=== PATIENT | female | born 1970 | race Hispanic/Latino ===

== ENCOUNTER 2016-06-15 19:53 | Emergency (ER) | payer SELFPAY ==
--- NOTE | 2016-06-15 21:56 | Cat Scan Report ---
FINAL REPORT PROCEDURE: CT HEAD/BRAIN WO CON TECHNIQUE: Computerized tomography of the head was performed without contrast material. HISTORY: headache COMPARISON: No prior studies are available for comparison. FINDINGS: Skull and scalp: Normal. Paranasal sinuses: Normal. Ventricles and subarachnoid spaces: Normal. Cerebrum: No evidence of hemorrhage, acute infarction or mass . Cerebellum and brainstem: No evidence of hemorrhage, acute infarction or mass. Vasculature: Normal. Comments: None. IMPRESSION: Normal Examination
[2016-06-15 23:17] VITALS: BP 122/68
--- NOTE | 2016-06-18 19:11 | ED Elopement Review ---
ED Pt Elopement review - Call Back decision Pt Call Back Decision: Pt to F/U with PMD
== END 2016-06-16 00:41 | disposition left against medical advice (07) ==
LOC: ED 19:53
DX: R51 Headache (principal); Z53.21 Procedure and treatment not carried out due to patient leaving prior to being seen by health care provider
CPT/HCPCS: 70450

== ENCOUNTER 2017-02-22 18:46 | Emergency (ER) | payer SELFPAY ==
[2017-02-22 19:44] LABS: Hematocrit 42.4 % (30.3-42.9); Hemoglobin 14.2 gm/dl (10.1-14.3); Mean Corpuscular HGB Conc 33 % (30-34); Mean Corpuscular Hemoglobin 28 pg (28-32); Mean Corpuscular Volume 84 fl (79-97); Platelet Count 198 K/mm3 (140-440); Red Blood Count 5.03 M/mm3 (3.65-5.03)
[2017-02-22 19:55] LABS: BUN/Creatinine Ratio 28; Blood Urea Nitrogen 14 mg/dL (7-17); Calcium 9.3 mg/dL (8.4-10.2); Hemolysis Index 4
[2017-02-22 20:04] LABS: Red Cell Distribution Width 22.6 % (13.2-15.2)
[2017-02-22 20:39] LABS: Bilirubin,Urine NEG (Negative); Blood,Urine MOD (Negative); Color,Urine Yellow (Yellow); Mucus,Urine FEW /HPF; Nitrite,Urine NEG (Negative); Protein,Urine <15 mg/dL mg/dL (Negative); Urobilinogen,Urine < 2.0 mg/dL (<2.0)
[2017-02-23] MEDS ORDERED: MORPHINE IV ONE (07:23)
[2017-02-23] MEDS ORDERED: ZOFRAN IV ONE (07:23)
--- NOTE | 2017-02-23 07:26 | Emergency Department Report ---
ED General Adult HPI - General Chief complaint: Urogenital-Female Stated complaint: BLOOD IN URINE Time Seen by Provider: 02/23/17 06:52 Source: patient Mode of arrival: Ambulatory Limitations: No Limitations - History of Present Illness Initial comments: Patient is a 46-year-old female who is presenting with right flank pain. Patient states that the pain has been for 2 days Radiation: non-radiation Severity scale (0 -10): 7 Quality: aching Consistency: constant Improves with: none Worsens with: none Associated Symptoms: nausea/vomiting, other (patient also has noted some hematuria). denies: confusion, chest pain, cough, fever/chills, headaches, shortness of breath, syncope Treatments Prior to Arrival: none - Related Data Home Medications Medication Instructions Recorded Confirmed Last Taken Carvedilol [Coreg] 3.125 mg PO DAILY 04/26/16 06/15/16 06/15/16 Clopidogrel Bisulfate [Plavix] 75 mg PO DAILY 04/26/16 06/15/16 06/15/16 FLUoxetine HCL [PROzac] 40 mg PO QDAY 04/26/16 06/15/16 06/15/16 Zolpidem [Ambien] 5 mg PO QHS PRN 04/26/16 06/15/16 1 Day Ago ~06/14/16 Previous Rx's Medication Instructions Recorded Last Taken Type Aspirin [Aspirin BABY CHEW TAB] 81 mg PO QDAY #30 tab.chew 09/24/15 06/15/16 Rx AtorvaSTATin [Lipitor] 80 mg PO QHS #30 tablet 09/24/15 1 Day Ago Rx ~06/14/16 Nitroglycerin [Nitrostat] 0.4 mg SL .Q5MIN PRN #100 tablet 09/24/15 1 Day Ago Rx ~04/25/16 Pantoprazole [Protonix TAB] 40 mg PO QDAY #30 tablet 02/04/16 06/15/16 Rx Antacid [Alum-Mag Hydrox-Simeth 15 ml PO Q4H PRN #30 oral.liqd 04/27/16 Unknown Rx [id number]/5Ml] Famotidine [Pepcid] 40 mg PO QHS #30 tablet 04/27/16 06/15/16 Rx Azithromycin [Zithromax Z-CELI] 1 dose PO DAILY 5 Days tab 12/22/16 Unknown Rx HYDROcodone/APAP 7.5-325 [[place] 1 each PO Q6HR PRN #20 tablet 12/22/16 Unknown Rx 7.5/325] Ibuprofen [Motrin] 600 mg PO Q8H PRN #30 tablet 12/22/16 Unknown Rx Ciprofloxacin HCl [Cipro] 500 mg PO BID 7 Days tablet 02/23/17 Unknown Rx HYDROcodone/APAP 5-325 [[place] 1 each PO Q6HR PRN #12 tablet 02/23/17 Unknown Rx 5/325] Ondansetron [Zofran Odt] 4 mg PO Q12HR #10 tab.rapdis 02/23/17 Unknown Rx Allergies Allergy/AdvReac Type Severity Reaction Status Date / Time No Known Allergies Allergy Unverified 09/21/15 09:51 ED Review of Systems ROS: Stated complaint: BLOOD IN URINE Other details as noted in HPI Comment: All other systems reviewed and negative ED Past Medical Hx - Past Medical History Hx Hypertension: No Hx Heart Attack/AMI: Yes Hx Congestive Heart Failure: No Hx Diabetes: No Hx Asthma: No Hx COPD: No Hx HIV: No Additional medical history: [place] with stent placement 08/2015. Esophageal stricture - Surgical History Hx Cholecystectomy: Yes Additional Surgical History: hysterectomy - Social History Smoking Status: Current Every Day Smoker Substance Use Type: None - Medications Home Medications: Home Medications Medication Instructions Recorded Confirmed Last Taken Type Aspirin [Aspirin BABY CHEW TAB] 81 mg PO QDAY #30 tab.chew 09/24/15 06/15/16 Rx AtorvaSTATin [Lipitor] 80 mg PO QHS #30 tablet 09/24/15 06/15/16 1 Day Ago Rx ~06/14/16 Nitroglycerin [Nitrostat] 0.4 mg SL .Q5MIN PRN #100 tablet 09/24/15 06/15/16 1 Day Ago Rx ~04/25/16 Pantoprazole [Protonix TAB] 40 mg PO QDAY #30 tablet 02/04/16 06/15/16 06/15/16 Rx Carvedilol [Coreg] 3.125 mg PO DAILY 04/26/16 06/15/16 06/15/16 History Clopidogrel Bisulfate [Plavix] 75 mg PO DAILY 04/26/16 06/15/16 06/15/16 History FLUoxetine HCL [PROzac] 40 mg PO QDAY 04/26/16 06/15/16 06/15/16 History Zolpidem [Ambien] 5 mg PO QHS PRN 04/26/16 06/15/16 1 Day Ago History ~06/14/16 Antacid [Alum-Mag Hydrox-Simeth 15 ml PO Q4H PRN #30 oral.liqd 04/27/16 Unknown Rx [id number]/5Ml] Famotidine [Pepcid] 40 mg PO QHS #30 tablet 04/27/16 06/15/16 06/15/16 Rx Azithromycin [Zithromax Z-CELI] 1 dose PO DAILY 5 Days tab 12/22/16 Unknown Rx HYDROcodone/APAP 7.5-325 [[place] 1 each PO Q6HR PRN #20 tablet 12/22/16 Unknown Rx 7.5/325] Ibuprofen [Motrin] 600 mg PO Q8H PRN #30 tablet 12/22/16 Unknown Rx Ciprofloxacin HCl [Cipro] 500 mg PO BID 7 Days tablet 02/23/17 Unknown Rx HYDROcodone/APAP 5-325 [[place] 1 each PO Q6HR PRN #12 tablet 02/23/17 Unknown Rx 5/325] Ondansetron [Zofran Odt] 4 mg PO Q12HR #10 tab.rapdis 02/23/17 Unknown Rx ED Physical Exam - General Limitations: No Limitations General appearance: alert, in no apparent distress - Head Head exam: Present: atraumatic, normocephalic - Eye Eye exam: Present: normal appearance - ENT ENT exam: Present: mucous membranes moist - Neck Neck exam: Present: normal inspection - Respiratory Respiratory exam: Present: normal lung sounds bilaterally. Absent: respiratory distress - Cardiovascular Cardiovascular Exam: Present: regular rate, normal rhythm. Absent: systolic murmur, diastolic murmur, rubs, gallop - GI/Abdominal GI/Abdominal exam: Present: soft, tenderness (right flank and right CVA), normal bowel sounds. Absent: distended, guarding, rebound - Extremities Exam Extremities exam: Present: normal inspection - Back Exam Back exam: Present: normal inspection - Neurological Exam Neurological exam: Present: alert, oriented X3 - Psychiatric Psychiatric exam: Present: normal affect, normal mood - Skin Skin exam: Present: warm, dry, intact, normal color. Absent: rash ED Course Vital Signs 02/22/17 02/23/17 02/23/17 19:05 05:58 06:00 Temperature 97.9 F Pulse Rate 83 Respiratory 18 Rate Blood Pressure 139/96 124/56 119/57 O2 Sat by Pulse 97 96 Oximetry 02/23/17 02/23/17 02/23/17 06:12 06:15 06:30 Temperature Pulse Rate Respiratory 18 Rate Blood Pressure 119/57 122/64 O2 Sat by Pulse 97 95 92 Oximetry 02/23/17 02/23/17 06:45 07:00 Temperature Pulse Rate Respiratory Rate Blood Pressure 127/69 O2 Sat by Pulse 94 96 Oximetry ED Medical Decision Making - Lab Data Result diagrams: 02/22/17 19:18 02/22/17 19:18 Critical care attestation.: If time is entered above; I have spent that time in minutes in the direct care of this critically ill patient, excluding procedure time. ED Disposition Clinical Impression: Hematuria Disposition: DC-01 TO HOME OR SELFCARE Is pt being admited?: No Does the pt Need Aspirin: No Condition: Good Instructions: Acute Hematuria (ED), Kidney Stones (ED) Prescriptions: Ciprofloxacin HCl [Cipro] 500 mg PO BID 7 Days tablet HYDROcodone/APAP 5-325 [[place] 5/325] 1 each PO Q6HR PRN #12 tablet PRN Reason: Pain Ondansetron [Zofran Odt] 4 mg PO Q12HR #10 tab.rapdis Referrals: SONU SANON MD [Staff Physician] - 3-5 Days
--- NOTE | 2017-02-23 07:51 | Cat Scan Report ---
CT ABDOMEN PELVIS WITHOUT CONTRAST: HISTORY: Right flank pain. COMPARISON: none. TECHNIQUE: Helical CT in 1.25mm intervals without IV contrast. Sagittal and coronal reconstructions. FINDINGS: Lung bases: Normal. Liver: Normal. Biliary system: Cholecystectomy. No evidence for biliary dilatation. Pancreas: Normal. Spleen: Normal. Kidneys/ureters/bladder: Within normal limits. No evidence for cystic disease, mass, nephrolithiasis or hydronephrosis. The ureters are normal course and caliber. The bladder is within normal limits. Adrenal glands: Normal. Aorta: Normal. Intestines: A few sigmoid diverticula are identified. No evidence for focal inflammation or obstruction. Appendix: Normal. Pelvic viscera: Hysterectomy changes. The ovaries are unremarkable. Ascites: None. Adenopathy: None. Musculoskeletal: Mild thoracolumbar spondylosis. IMPRESSION: Unremarkable CT scan of the abdomen and pelvis without contrast. Surgical changes as described.
[2017-02-23 11:26] VITALS: BP 102/59
== END 2017-02-23 11:30 | disposition home or self-care (01) ==
LOC: ED 18:46
DX: R31.9 Hematuria, unspecified (principal); F17.200 Nicotine dependence, unspecified, uncomplicated; I25.2 Old myocardial infarction; Z90.710 Acquired absence of both cervix and uterus; Z79.01 Long term (current) use of anticoagulants; Z79.899 Other long term (current) drug therapy; Z79.82 Long term (current) use of aspirin
CPT/HCPCS: 36415; 74176; 80048; 81001; 85027; 96374; 96375; 99284; J2270; J2405

== ENCOUNTER 2017-05-28 11:14 | Emergency (ER) | payer SELFPAY ==
[2017-05-28] MEDS ORDERED: ASPIRIN PO ONE (11:33)
[2017-05-28 12:00] LABS: Basophils # (Auto) 0.1 K/mm3 (0.0-0.1); Basophils % (Auto) 0.6 % (0.0-1.8); Eosinophils # (Auto) 0.8 K/mm3 (0.0-0.4); Eosinophils % (Auto) 7.6 % (0.0-4.3); Hematocrit 42.9 % (30.3-42.9); Lymphocytes % (Auto) 20.1 % (13.4-35.0); Mean Corpuscular HGB Conc 35 % (30-34); Mean Corpuscular Hemoglobin 32 pg (28-32); Mean Corpuscular Volume 91 fl (79-97); Monocytes # (Auto) 0.7 K/mm3 (0.0-0.8); Monocytes % (Auto) 6.8 % (0.0-7.3); Platelet Count 198 K/mm3 (140-440); Red Blood Count 4.72 M/mm3 (3.65-5.03); Red Cell Distribution Width 13.1 % (13.2-15.2)
[2017-05-28 12:20] LABS: BUN/Creatinine Ratio 24; Blood Urea Nitrogen 12 mg/dL (7-17); Calcium 9.4 mg/dL (8.4-10.2); Hemolysis Index 12
[2017-05-28] MEDS ORDERED: ZOFRAN IV ONE (21:31)
[2017-05-28] MEDS ORDERED: MORPHINE IV ONE (21:31)
--- NOTE | 2017-05-28 21:52 | Emergency Department Report ---
HPI - General Chief Complaint: Chest Pain Time Seen by Provider: 05/28/17 21:25 - HPI HPI: 47-year-old white female presents to ED with chest pain, quite a past 3 days worse today. Patient describes her pain at 4 out of 10, without radiation, sharp, without shortness of breath. Patient states she has a history of blood pressure, history of CAD status post stent placement 2 years ago. Patient is accompanied by will help with the history. Patient lays in bed does not appear to be in distress. She denies any exacerbating factors, she denies any alleviating factors. She's had a history of chest pain especially with her history of esophageal spasm. ED Past Medical Hx - Past Medical History Hx Hypertension: No Hx Heart Attack/AMI: Yes Hx Congestive Heart Failure: No Hx Diabetes: No Hx Asthma: No Hx COPD: No Hx HIV: No Additional medical history: [place] with stent placement 08/2015. Esophageal stricture - Surgical History Hx Cholecystectomy: Yes Additional Surgical History: hyste[place] with stent 2015 - Social History Smoking Status: Current Every Day Smoker Substance Use Type: None - Medications Home Medications: Home Medications Medication Instructions Recorded Confirmed Last Taken Type Aspirin [Aspirin BABY CHEW TAB] 81 mg PO QDAY #30 tab.chew 09/24/15 05/28/17 Rx AtorvaSTATin [Lipitor] 80 mg PO QHS #30 tablet 09/24/15 05/28/17 1 Day Ago Rx ~06/14/16 Nitroglycerin [Nitrostat] 0.4 mg SL .Q5MIN PRN #100 tablet 09/24/15 05/28/17 1 Day Ago Rx ~04/25/16 Pantoprazole [Protonix TAB] 40 mg PO QDAY #30 tablet 02/04/16 05/28/17 06/15/16 Rx Clopidogrel Bisulfate [Plavix] 75 mg PO DAILY 04/26/16 05/28/17 06/15/16 History Zolpidem [Ambien] 5 mg PO QHS PRN 04/26/16 05/28/17 1 Day Ago History ~06/14/16 Ibuprofen [Motrin] 600 mg PO Q8H PRN #30 tablet 12/22/16 05/28/17 Unknown Rx Hydrochlorothiazide [HCTZ] 25 mg PO QDAY 05/28/17 05/28/17 Unknown History Metoprolol 50 mg PO BID 05/28/17 05/28/17 Unknown History Potassium Chloride [K-Dur] 20 meq PO QDAY 05/28/17 05/28/17 Unknown History ED Review of Systems ROS: Stated complaint: CHEST PAIN Other details as noted in HPI Comment: All other systems reviewed and negative Respiratory: denies: see HPI, cough Cardiovascular: chest pain. denies: syncope, paroxysmal nocturnal dyspnea Physical Exam - Physical Exam Vital Signs: Vital Signs 05/28/17 11:26 Temperature 98.5 F Pulse Rate 71 Respiratory 20 Rate Blood Pressure 117/67 O2 Sat by Pulse 97 Oximetry Physical Exam: - Physical Exam Physical Exam: - General Limitations: No Limitations General appearance: alert, in no apparent distress. - Head Head exam: Present: atraumatic, normocephalic - Eye Eye exam: Present: normal appearance - ENT ENT exam: Present: mucous membranes moist - Neck Neck exam: Present: normal inspection - Respiratory Respiratory exam: Present: normal lung sounds bilaterally. Absent: respiratory distress - Cardiovascular Cardiovascular Exam: Present: normal rhythm, normal rate absent: systolic murmur , diastolic murmur, rubs, gallop - GI/Abdominal GI/Abdominal exam: Present: soft, normal bowel sounds - Extremities Exam Extremities exam: Present: normal inspection - Back Exam Back exam: Present: normal inspection - Neurological Exam Neurological exam: Present: alert, oriented X3 - Psychiatric Psychiatric exam: normal affect and mood - Skin Skin exam: Present: warm, dry, intact, normal color. Absent: rash ED Course Vital Signs 05/28/17 11:26 Temperature 98.5 F Pulse Rate 71 Respiratory 20 Rate Blood Pressure 117/67 O2 Sat by Pulse 97 Oximetry ED Medical Decision Making - Lab Data Result diagrams: 05/28/17 11:47 05/28/17 11:47 Critical care attestation.: If time is entered above; I have spent that time in minutes in the direct care of this critically ill patient, excluding procedure time. ED Disposition Clinical Impression: Chest pain Qualifiers: Chest pain type: other chest pain Qualified Code(s): R07.89 - Other chest pain ; R07.8 - Other chest pain Condition: Stable Instructions: Chest Pain (ED) Referrals: PRIMARY CARE, [Primary Care Provider] - 3-5 Days
[2017-05-28] MEDS ORDERED: NORCO 10/325 PO ONE (21:58)
[2017-05-28 23:07] VITALS: BP 147/95
== END 2017-05-28 23:06 | disposition home or self-care (01) ==
LOC: ED 11:14
DX: R07.89 Other chest pain (principal); F17.200 Nicotine dependence, unspecified, uncomplicated; I25.2 Old myocardial infarction; I25.10 Atherosclerotic heart disease of native coronary artery without angina pectoris; Z90.710 Acquired absence of both cervix and uterus; Z90.49 Acquired absence of other specified parts of digestive tract; Z95.818 Presence of other cardiac implants and grafts
CPT/HCPCS: 36415; 80048; 84484; 85025; 93005; 93010; 99284

== ENCOUNTER 2017-08-29 14:25 | Emergency (ER) | payer SELFPAY ==
[2017-08-29 14:38] VITALS: BP 125/78
[2017-08-29 15:58] LABS: Bacteria,Urine 1+ /HPF (Negative); Bilirubin,Urine NEG (Negative); Blood,Urine NEG (Negative); Color,Urine Amber (Yellow); Protein,Urine <15 mg/dL mg/dL (Negative); WBC,Urine < 1.0 /HPF (0.0-6.0)
[2017-08-29] MEDS ORDERED: NACL 0.9% 1000 ML 1,000 ML IV ONE (16:47)
[2017-08-29] MEDS ORDERED: DILAUDID IV ONE (16:47)
--- NOTE | 2017-08-29 16:47 | Emergency Department Report ---
ED Abdominal Pain HPI - General Chief Complaint: Abdominal Pain Stated Complaint: KINDNEY PAIN Time Seen by Provider: 08/29/17 16:31 Source: patient Mode of arrival: Ambulatory Limitations: No Limitations - History of Present Illness Initial Comments: History of hysterectomy, n no vaginal bleeding no vaginal discharge. With left flank pain no dysuria MD Complaint: abdominal pain, flank pain -: Gradual, hour(s) Location: L flank Severity: mild, moderate Consistency: intermittent Associated Symptoms: denies other symptoms, dysuria. denies: nausea, vomiting, diarrhea, fever, chills, constipation, hematemesis, hematochezia, melena, hematuria, anorexia, syncope - Related Data Home Medications Medication Instructions Recorded Confirmed Last Taken Clopidogrel Bisulfate [Plavix] 75 mg PO DAILY 04/26/16 05/28/17 06/15/16 Zolpidem [Ambien] 5 mg PO QHS PRN 04/26/16 05/28/17 1 Day Ago ~06/14/16 Hydrochlorothiazide [HCTZ] 25 mg PO QDAY 05/28/17 05/28/17 Unknown Metoprolol 50 mg PO BID 05/28/17 05/28/17 Unknown Potassium Chloride [K-Dur] 20 meq PO QDAY 05/28/17 05/28/17 Unknown Previous Rx's Medication Instructions Recorded Last Taken Type Aspirin [Aspirin BABY CHEW TAB] 81 mg PO QDAY #30 tab.chew 09/24/15 06/15/16 Rx AtorvaSTATin [Lipitor] 80 mg PO QHS #30 tablet 09/24/15 1 Day Ago Rx ~06/14/16 Nitroglycerin [Nitrostat] 0.4 mg SL .Q5MIN PRN #100 tablet 09/24/15 1 Day Ago Rx ~04/25/16 Pantoprazole [Protonix TAB] 40 mg PO QDAY #30 tablet 02/04/16 06/15/16 Rx Ibuprofen [Motrin] 600 mg PO Q8H PRN #30 tablet 12/22/16 Unknown Rx Acetaminophen/Codeine [Tylenol 1 tab PO Q6H PRN #10 tab 08/29/17 Unknown Rx /Codeine # 3 tab] Ciprofloxacin HCl [Cipro] 500 mg PO BID #14 tablet 08/29/17 Unknown Rx Phenazopyridine [Pyridium] 200 mg PO TID PRN #10 tab 08/29/17 Unknown Rx Allergies Allergy/AdvReac Type Severity Reaction Status Date / Time No Known Allergies Allergy Verified 08/29/17 14:35 ED Review of Systems ROS: Stated complaint: KINDNEY PAIN Other details as noted in HPI Comment: All other systems reviewed and negative Constitutional: denies: diaphoresis, fever, malaise Eyes: denies: eye discharge, vision change ENT: denies: dental pain, hearing loss, epistaxis Respiratory: denies: shortness of breath, SOB with exertion, SOB at rest, stridor Cardiovascular: denies: chest pain, palpitations Gastrointestinal: abdominal pain. denies: nausea, vomiting, diarrhea, constipation, hematemesis, melena Genitourinary: dysuria Musculoskeletal: back pain, other (denies injury to the back denies mechanical symptoms). denies: joint swelling, arthralgia, myalgia Neurological: denies: headache, weakness, numbness, paresthesias, confusion, abnormal gait, vertigo ED Past Medical Hx - Past Medical History Hx Hypertension: No Hx Heart Attack/AMI: Yes (stent) Hx Congestive Heart Failure: No Hx Diabetes: No Hx Asthma: No Hx COPD: No Hx HIV: No Additional medical history: [place] with stent placement 08/2015. Esophageal stricture - Surgical History Hx Cholecystectomy: Yes Additional Surgical History: hysterectomy - Social History Smoking Status: Current Every Day Smoker Substance Use Type: None - Medications Home Medications: Home Medications Medication Instructions Recorded Confirmed Last Taken Type Aspirin [Aspirin BABY CHEW TAB] 81 mg PO QDAY #30 tab.chew 09/24/15 05/28/17 Rx AtorvaSTATin [Lipitor] 80 mg PO QHS #30 tablet 09/24/15 05/28/17 1 Day Ago Rx ~06/14/16 Nitroglycerin [Nitrostat] 0.4 mg SL .Q5MIN PRN #100 tablet 09/24/15 05/28/17 1 Day Ago Rx ~04/25/16 Pantoprazole [Protonix TAB] 40 mg PO QDAY #30 tablet 02/04/16 05/28/17 06/15/16 Rx Clopidogrel Bisulfate [Plavix] 75 mg PO DAILY 04/26/16 05/28/17 06/15/16 History Zolpidem [Ambien] 5 mg PO QHS PRN 04/26/16 05/28/17 1 Day Ago History ~06/14/16 Ibuprofen [Motrin] 600 mg PO Q8H PRN #30 tablet 12/22/16 05/28/17 Unknown Rx Hydrochlorothiazide [HCTZ] 25 mg PO QDAY 05/28/17 05/28/17 Unknown History Metoprolol 50 mg PO BID 05/28/17 05/28/17 Unknown History Potassium Chloride [K-Dur] 20 meq PO QDAY 05/28/17 05/28/17 Unknown History Acetaminophen/Codeine [Tylenol 1 tab PO Q6H PRN #10 tab 08/29/17 Unknown Rx /Codeine # 3 tab] Ciprofloxacin HCl [Cipro] 500 mg PO BID #14 tablet 08/29/17 Unknown Rx Phenazopyridine [Pyridium] 200 mg PO TID PRN #10 tab 08/29/17 Unknown Rx ED Physical Exam - General Limitations: No Limitations General appearance: alert - Head Head exam: Present: atraumatic, normocephalic - Eye Eye exam: Present: PERRL, EOMI - ENT ENT exam: Present: normal exam, normal orophraynx - Neck Neck exam: Present: normal inspection. Absent: tenderness, meningismus - Respiratory Respiratory exam: Present: normal lung sounds bilaterally. Absent: respiratory distress, wheezes, rales, rhonchi, stridor, prolonged expiratory - Cardiovascular Cardiovascular Exam: Present: regular rate, normal rhythm - GI/Abdominal GI/Abdominal exam: Present: soft. Absent: distended, tenderness, guarding, rebound, rigid, mass, pulsatile mass - Extremities Exam Extremities exam: Present: normal inspection, normal capillary refill - Back Exam Back exam: Present: CVA tenderness (L). Absent: paraspinal tenderness, vertebral tenderness - Neurological Exam Neurological exam: Present: alert, oriented X3, CN II-XII intact. Absent: motor sensory deficit ED Course Vital Signs 08/29/17 14:36 Temperature 98.1 F Pulse Rate 76 Respiratory 16 Rate Blood Pressure 125/78 O2 Sat by Pulse 98 Oximetry ED Medical Decision Making - Lab Data Result diagrams: 08/29/17 17:01 08/29/17 17:01 - Radiology Data Radiology results: report reviewed - Medical Decision Making CT shows normal appendix process in the abdomen and pelvis, urinalysis does look like possible UTI and symptoms are likely consistent with pyelonephritis, she will be given antibiotics and pain control, she has no acute abdomen at this time is tolerated by mouth prior signs are stable are made of the laboratory studies are unremarkable she is stable for outpatient follow-up she does have elevated white count and this would also be consistent with urinary infection patient did consent a Toradol shot Critical care attestation.: If time is entered above; I have spent that time in minutes in the direct care of this critically ill patient, excluding procedure time. ED Disposition Clinical Impression: UTI (urinary tract infection), Back pain Disposition: TO HOME OR SELFCARE Is pt being admited?: No Condition: Stable Instructions: Abdominal Pain (ED), Urinary Tract Infection in Women (ED) Additional Instructions: Take the medicines as directed see the doctor listed return immediately if new or alarming symptoms Prescriptions: Acetaminophen/Codeine [Tylenol /Codeine # 3 tab] 1 tab PO Q6H PRN #10 tab PRN Reason: Pain, Moderate (4-6) Ciprofloxacin HCl [Cipro] 500 mg PO BID #14 tablet Phenazopyridine [Pyridium] 200 mg PO TID PRN #10 tab PRN Reason: Pain, Moderate (4-6) Referrals: PRIMARY CARE, [Primary Care Provider] - 3-5 Days Time of Disposition: 18:15
[2017-08-29] MEDS ORDERED: ZOFRAN IV ONE (16:48)
[2017-08-29 17:19] LABS: Basophils # (Auto) 0.1 K/mm3 (0.0-0.1); Basophils % (Auto) 0.7 % (0.0-1.8); Eosinophils # (Auto) 0.5 K/mm3 (0.0-0.4); Eosinophils % (Auto) 4.4 % (0.0-4.3); Hematocrit 45.1 % (30.3-42.9); Hemoglobin 15.6 gm/dl (10.1-14.3); Lymphocytes % (Auto) 16.2 % (13.4-35.0); Mean Corpuscular HGB Conc 35 % (30-34); Mean Corpuscular Hemoglobin 32 pg (28-32); Mean Corpuscular Volume 93 fl (79-97); Monocytes # (Auto) 0.6 K/mm3 (0.0-0.8); Platelet Count 202 K/mm3 (140-440); Red Blood Count 4.87 M/mm3 (3.65-5.03); Red Cell Distribution Width 12.9 % (13.2-15.2)
[2017-08-29 17:29] LABS: Alanine Aminotransferase 45 units/L (7-56); Albumin 4.6 g/dL (3.9-5); BUN/Creatinine Ratio 24; Blood Urea Nitrogen 12 mg/dL (7-17); Calcium 9.8 mg/dL (8.4-10.2); Hemolysis Index 23
--- NOTE | 2017-08-29 17:53 | Cat Scan Report ---
FINAL REPORT PROCEDURE: CT ABDOMEN PELVIS WO CON TECHNIQUE: Computerized axial tomography of the abdomen and pelvis was performed without intravenous contrast. This study is performed without intravascular contrast material and its sensitivity for abdominal and pelvic pathology, including neoplasms, inflammation, abscess, free fluid, thrombosis, arterial dissection and infarction, is reduced compared with a contrast enhanced study. HISTORY: flank pain COMPARISON: No prior studies are available for comparison. FINDINGS: Visualized lower thorax: No significant abnormality. Liver: Liver is prominent, measuring 22 centimeters craniocaudal. Spleen: Normal size and attenuation. Gallbladder and biliary system: There has been cholecystectomy. Pancreas: Normal. Adrenals: Normal. Kidneys: Normal. GI tract: The appendix is visualized and does not appear inflamed. Scattered colonic diverticula are present. No bowel obstruction or inflammation. Lymph nodes and mesentery: Normal. Vasculature: Normal. Bladder: Normal. Reproductive organs: Uterus is not identified. 17 millimeter left ovarian cyst. Peritoneum: No free fluid. Musculoskeletal structures: There are facet arthritic changes of the lower lumbar spine. Other: None. IMPRESSION: No acute abnormality is identified.
[2017-08-29] MEDS ORDERED: TORADOL IV ONE (18:00)
== END 2017-08-29 18:33 | disposition home or self-care (01) ==
LOC: ED 14:25
DX: N39.0 Urinary tract infection, site not specified (principal); M54.9 Dorsalgia, unspecified; I25.2 Old myocardial infarction; F17.200 Nicotine dependence, unspecified, uncomplicated; Z90.49 Acquired absence of other specified parts of digestive tract; Z90.710 Acquired absence of both cervix and uterus
CPT/HCPCS: 36415; 74176; 80053; 81001; 85025; 87086; 96374; 96375; 99284; J1170; J1885; J2405; J7030

== ENCOUNTER 2017-11-29 08:35 | Emergency (ER) | payer SELFPAY ==
[2017-11-29 08:43] VITALS: BP 140/77
[2017-11-29] MEDS ORDERED: ASPIRIN PO ONE (08:44)
== END 2017-11-29 11:55 | disposition left against medical advice (07) ==
LOC: ED 08:35
DX: R07.89 Other chest pain (principal); Z53.21 Procedure and treatment not carried out due to patient leaving prior to being seen by health care provider
CPT/HCPCS: 93005; 93010

== ENCOUNTER 2018-04-29 15:12 | Emergency (ER) | payer OTHER ==
[2018-04-29 15:41] VITALS: BP 128/66
[2018-04-29] MEDS ORDERED: ASPIRIN PO ONE (16:04)
--- NOTE | 2018-04-29 16:06 | Emergency Department Report ---
Chief Complaint: Chest Pain Stated Complaint: DIFFICULTY BREATHING Time Seen by Provider: 04/29/18 16:00 - HPI History of Present Illness: This is a 48 y.o. female that presents with chest/rib pain that increased this morning. Patient states she is recovering from a cold and can't get rid of the cough. Current smoker quarter pack per day. She reports pain is under breast. She also complains of SOB. - ROS Review of Systems: Substernal chest pain and SOB. - Exam Vital Signs: Vital Signs 04/29/18 15:40 Temperature 98.2 F Pulse Rate 88 Respiratory 16 Rate Blood Pressure 128/66 [Right] O2 Sat by Pulse 96 Oximetry MSE screening note: Focused history and physical exam performed. Due to findings the following was ordered: labs Fast track for further evaluation. ED Disposition for MSE Condition: Stable
[2018-04-29 16:51] LABS: Basophils # (Auto) 0.1 K/mm3 (0.0-0.1); Basophils % (Auto) 0.9 % (0.0-1.8); Eosinophils # (Auto) 0.7 K/mm3 (0.0-0.4); Eosinophils % (Auto) 6.3 % (0.0-4.3); Hematocrit 44.9 % (30.3-42.9); Hemoglobin 15.6 gm/dl (10.1-14.3); Lymphocytes # (Auto) 2.7 K/mm3 (1.2-5.4); Lymphocytes % (Auto) 23.1 % (13.4-35.0); Mean Corpuscular HGB Conc 35 % (30-34); Mean Corpuscular Volume 93 fl (79-97); Monocytes # (Auto) 0.6 K/mm3 (0.0-0.8); Monocytes % (Auto) 4.8 % (0.0-7.3); Platelet Count 220 K/mm3 (140-440); Red Blood Count 4.83 M/mm3 (3.65-5.03); Red Cell Distribution Width 12.9 % (13.2-15.2)
[2018-04-29 17:17] LABS: BUN/Creatinine Ratio 18; Blood Urea Nitrogen 9 mg/dL (7-17); Calcium 9.5 mg/dL (8.4-10.2); Hemolysis Index 8
[2018-04-29] MEDS ORDERED: TYLENOL/CODEINE PO STA (17:45)
[2018-04-29] MEDS ORDERED: PROVENTIL IH ONE (17:45)
[2018-04-29] MEDS ORDERED: DELTASONE PO STA (17:45)
--- NOTE | 2018-04-29 18:11 | Emergency Department Report ---
ED General Adult HPI - General Chief complaint: Chest Pain Stated complaint: DIFFICULTY BREATHING Time Seen by Provider: 04/29/18 16:00 Source: patient Mode of arrival: Ambulatory Limitations: No Limitations - History of Present Illness Initial comments: 48-year-old obese female. She is much department complaining of a three-day history of cough, congestion and wheezing associated with family being sick and she is now given to The cold. She is has been trying to elude for the last 2 weeks. She reports no fever, chills, sweats, chest palpitations, nausea, vomiting, but has been experiencing some wheezing, yellow mucous production and irritation to her throat. States she had a coughing spell this morning and she felt a pop to the right side of her rib and chest. Since that time as having aching, dull, chest pain, worse with deep breath and palpation. No hemoptysis, no hematemesis, hematochezia Radiation: non-radiation Severity scale (0 -10): 8 Improves with: none Worsens with: none Associated Symptoms: denies: chest pain, cough, loss of appetite, malaise, nausea/vomiting, shortness of breath, syncope, weakness Treatments Prior to Arrival: none - Related Data Home Medications Medication Instructions Recorded Confirmed Last Taken Clopidogrel Bisulfate [Plavix] 75 mg PO DAILY 04/26/16 05/28/17 06/15/16 Zolpidem [Ambien] 5 mg PO QHS PRN 04/26/16 05/28/17 1 Day Ago ~06/14/16 Metoprolol 50 mg PO BID 05/28/17 05/28/17 Unknown Potassium Chloride [K-Dur] 20 meq PO QDAY 05/28/17 05/28/17 Unknown hydroCHLOROthiazide [HCTZ] 25 mg PO QDAY 05/28/17 05/28/17 Unknown Previous Rx's Medication Instructions Recorded Last Taken Type Aspirin [Aspirin BABY CHEW TAB] 81 mg PO QDAY #30 tab.chew 09/24/15 06/15/16 Rx AtorvaSTATin [Lipitor] 80 mg PO QHS #30 tablet 09/24/15 1 Day Ago Rx ~06/14/16 Nitroglycerin [Nitrostat] 0.4 mg SL .Q5MIN PRN #100 tablet 09/24/15 1 Day Ago Rx ~04/25/16 Pantoprazole [Protonix TAB] 40 mg PO QDAY #30 tablet 02/04/16 06/15/16 Rx Ibuprofen [Motrin] 600 mg PO Q8H PRN #30 tablet 12/22/16 Unknown Rx Acetaminophen/Codeine [Tylenol 1 tab PO Q6H PRN #10 tab 08/29/17 Unknown Rx /Codeine # 3 tab] Ciprofloxacin HCl [Cipro] 500 mg PO BID #14 tablet 08/29/17 Unknown Rx Phenazopyridine [Pyridium] 200 mg PO TID PRN #10 tab 08/29/17 Unknown Rx Acetaminophen/Codeine [Tylenol 1 tab PO Q6H PRN #20 tab 01/30/18 Unknown Rx /Codeine # 3 tab] Clobetasol Propionate/Emoll 60 gm TP DAILY 21 Days #1 cream..g. 01/30/18 Unknown Rx [Clobetasol Emollient 0.05% Crm] hydrOXYzine HCL [Atarax] 25 mg PO Q6HR PRN #28 tablet 01/30/18 Unknown Rx methylPREDNISolone [Medrol] 4 mg PO QAM 6 Days #1 tab.ds.pk 01/30/18 Unknown Rx ALBUTEROL Inhaler (OR & NICU) 2 puff IH QID PRN #1 inhalation 04/29/18 Unknown Rx [ProAir HFA Inhaler] Amoxicillin 500 mg PO QID #40 capsule 04/29/18 Unknown Rx guaiFENesin/CODEINE [Robitussin AC] 5 ml PO Q6H PRN #120 ml 04/29/18 Unknown Rx predniSONE [Deltasone] 20 mg PO QDAY #5 tab 04/29/18 Unknown Rx Allergies Allergy/AdvReac Type Severity Reaction Status Date / Time No Known Allergies Allergy Verified 11/29/17 15:01 ED Review of Systems ROS: Stated complaint: DIFFICULTY BREATHING Other details as noted in HPI Constitutional: denies: chills, fever Eyes: denies: eye pain, eye discharge, vision change ENT: denies: ear pain, throat pain Respiratory: cough. denies: shortness of breath, wheezing Cardiovascular: chest pain. denies: palpitations Endocrine: no symptoms reported Gastrointestinal: denies: abdominal pain, nausea, diarrhea Genitourinary: denies: urgency, dysuria, discharge Musculoskeletal: denies: back pain, joint swelling, arthralgia Skin: denies: rash, lesions Neurological: denies: headache, weakness, paresthesias Psychiatric: denies: anxiety, depression Hematological/Lymphatic: denies: easy bleeding, easy bruising ED Past Medical Hx - Past Medical History Hx Hypertension: No Hx Heart Attack/AMI: Yes (stent) Hx Congestive Heart Failure: No Hx Diabetes: No Hx Seizures: Yes Hx Asthma: No Hx COPD: No Hx HIV: No Additional medical history: GA with stent placement 08/2015. Esophageal stricture - Surgical History Hx Cholecystectomy: Yes Additional Surgical History: hysterectomy - Social History Smoking Status: Current Every Day Smoker Substance Use Type: None - Medications Home Medications: Home Medications Medication Instructions Recorded Confirmed Last Taken Type Aspirin [Aspirin BABY CHEW TAB] 81 mg PO QDAY #30 tab.chew 09/24/15 05/28/17 06/15/16 Rx AtorvaSTATin [Lipitor] 80 mg PO QHS #30 tablet 09/24/15 05/28/17 1 Day Ago Rx ~06/14/16 Nitroglycerin [Nitrostat] 0.4 mg SL .Q5MIN PRN #100 tablet 09/24/15 05/28/17 1 Day Ago Rx ~04/25/16 Pantoprazole [Protonix TAB] 40 mg PO QDAY #30 tablet 02/04/16 05/28/17 06/15/16 Rx Clopidogrel Bisulfate [Plavix] 75 mg PO DAILY 04/26/16 05/28/17 06/15/16 History Zolpidem [Ambien] 5 mg PO QHS PRN 04/26/16 05/28/17 1 Day Ago History ~06/14/16 Ibuprofen [Motrin] 600 mg PO Q8H PRN #30 tablet 12/22/16 05/28/17 Unknown Rx Metoprolol 50 mg PO BID 05/28/17 05/28/17 Unknown History Potassium Chloride [K-Dur] 20 meq PO QDAY 05/28/17 05/28/17 Unknown History hydroCHLOROthiazide [HCTZ] 25 mg PO QDAY 05/28/17 05/28/17 Unknown History Acetaminophen/Codeine [Tylenol 1 tab PO Q6H PRN #10 tab 08/29/17 Unknown Rx /Codeine # 3 tab] Ciprofloxacin HCl [Cipro] 500 mg PO BID #14 tablet 08/29/17 Unknown Rx Phenazopyridine [Pyridium] 200 mg PO TID PRN #10 tab 08/29/17 Unknown Rx Acetaminophen/Codeine [Tylenol 1 tab PO Q6H PRN #20 tab 01/30/18 Unknown Rx /Codeine # 3 tab] Clobetasol Propionate/Emoll 60 gm TP DAILY 21 Days #1 cream..g. 01/30/18 Unknown Rx [Clobetasol Emollient 0.05% Crm] hydrOXYzine HCL [Atarax] 25 mg PO Q6HR PRN #28 tablet 01/30/18 Unknown Rx methylPREDNISolone [Medrol] 4 mg PO QAM 6 Days #1 tab.ds.pk 01/30/18 Unknown Rx ALBUTEROL Inhaler (OR & NICU) 2 puff IH QID PRN #1 inhalation 04/29/18 Unknown Rx [ProAir HFA Inhaler] Amoxicillin 500 mg PO QID #40 capsule 04/29/18 Unknown Rx guaiFENesin/CODEINE [Robitussin AC] 5 ml PO Q6H PRN #120 ml 04/29/18 Unknown Rx predniSONE [Deltasone] 20 mg PO QDAY #5 tab 04/29/18 Unknown Rx ED Physical Exam - General Limitations: No Limitations General appearance: alert, in no apparent distress - Head Head exam: Present: atraumatic, normocephalic - Eye Eye exam: Present: normal appearance - ENT ENT exam: Present: mucous membranes moist - Neck Neck exam: Present: normal inspection - Respiratory Respiratory exam: Present: normal lung sounds bilaterally, chest wall tenderness (Anson right rib wall. No bruising was appreciated. No lifts helices or thrills. No step-off. No subcutaneous emphysema.). Absent: respiratory distress, decreased breath sounds, prolonged expiratory - Cardiovascular Cardiovascular Exam: Present: regular rate, normal rhythm. Absent: systolic murmur, diastolic murmur, rubs, gallop - GI/Abdominal GI/Abdominal exam: Present: soft, normal bowel sounds - Extremities Exam Extremities exam: Present: normal inspection - Back Exam Back exam: Present: normal inspection - Neurological Exam Neurological exam: Present: alert, oriented X3 - Psychiatric Psychiatric exam: Present: normal affect, normal mood - Skin Skin exam: Present: warm, dry, intact, normal color. Absent: rash ED Course Vital Signs 04/29/18 04/29/18 15:40 16:01 Temperature 98.2 F 98.2 F Pulse Rate 88 88 Respiratory 16 16 Rate Blood Pressure 128/66 Blood Pressure 128/66 [Right] O2 Sat by Pulse 96 96 Oximetry ED Medical Decision Making - Lab Data Result diagrams: 04/29/18 16:11 04/29/18 16:11 - Radiology Data Radiology results: report reviewed, image reviewed - Medical Decision Making Hermes has a known history of hyperactive airway disease, but has not taken her albuterol at home, which she states due to having a prescription. She also states she slipped at home, unable like me to give her some cheap medications that she is able to get therefore, we'll provide him with amoxicillin to cover this. Bronchial and upper airway infection. She is unable last 2 weeks in conjunction with albuterol. Critical care attestation.: If time is entered above; I have spent that time in minutes in the direct care of this critically ill patient, excluding procedure time. ED Disposition Clinical Impression: Rib pain on right side, Cough, Wheezing Clinical Impression: (Ruled Out): Acute ST elevation myocardial infarction Disposition: - TO HOME OR SELFCARE Is pt being admited?: No Does the pt Need Aspirin: No Condition: Stable Instructions: Chest Pain (ED), Costochondritis (ED), Cold Symptoms (ED), Acute Cough (ED) Referrals: TASH GARCIA MD [Primary Care Provider] - 3-5 Days
--- NOTE | 2018-04-29 18:17 | XRay Report ---
PROCEDURE: XR CHEST ROUTINE 2V TECHNIQUE: PA and lateral views of the chest HISTORY: chest pain COMPARISONS: None FINDINGS: There is mild prominence of the interstitial markings in both lungs with peribronchial thickening, ac ben versus chronic. There is no evidence of focal infiltrate, pneumothorax or pleural fluid collection. The cardiomediastinal silhouette is normal in appearance. The bony structures are unremarkable. IMPRESSION: 1. Mild prominence of the interstitial markings and peribronchial thickening, acute versus chronic. Comparison with previous imaging studies would be helpful. If further imaging is required, CT may be helpful. This document is electronically signed by Nila Kelley MD., April 29 2018 06:15:17 PM ET
== END 2018-04-29 18:40 | disposition home or self-care (01) ==
LOC: ED 15:12
DX: R05 Cough (principal); R09.81 Nasal congestion; R06.2 Wheezing; I25.2 Old myocardial infarction; F17.200 Nicotine dependence, unspecified, uncomplicated; Z95.5 Presence of coronary angioplasty implant and graft; Z90.49 Acquired absence of other specified parts of digestive tract; Z90.710 Acquired absence of both cervix and uterus
CPT/HCPCS: 36415; 71046; 80048; 84484; 85025; 93005; 93010; 94640; 99284; J7512

== ENCOUNTER 2018-09-23 06:14 | Day surgery (SDC) | payer SELFPAY ==
[2018-09-23] MEDS ORDERED: ECOTRIN PO ONE (07:49)
[2018-09-23] MEDS ORDERED: NACL 0.9% 500 ML 500 ML IV SCH (08:00)
[2018-09-23 08:05] LABS: Basophils # (Auto) 0.1 K/mm3 (0.0-0.1); Basophils % (Auto) 0.8 % (0.0-1.8); Eosinophils # (Auto) 0.6 K/mm3 (0.0-0.4); Eosinophils % (Auto) 6.7 % (0.0-4.3); Hematocrit 43.2 % (30.3-42.9); Lymphocytes # (Auto) 1.8 K/mm3 (1.2-5.4); Lymphocytes % (Auto) 19.1 % (13.4-35.0); Mean Corpuscular HGB Conc 35 % (30-34); Mean Corpuscular Volume 93 fl (79-97); Monocytes # (Auto) 0.7 K/mm3 (0.0-0.8); Monocytes % (Auto) 7.1 % (0.0-7.3); Platelet Count 176 K/mm3 (140-440); Red Blood Count 4.63 M/mm3 (3.65-5.03)
[2018-09-23 08:17] LABS: BUN/Creatinine Ratio 22; Blood Urea Nitrogen 13 mg/dL (7-17); Calcium 9.4 mg/dL (8.4-10.2); Hemolysis Index 12
[2018-09-23 08:19] LABS: INR 0.95 (0.87-1.13)
[2018-09-23] MEDS ORDERED: HEPARIN/NS 5000 UNIT/500ML(CATH LAB) 1,000 ML IR ONE (08:27)
[2018-09-23] MEDS ORDERED: HEPARIN 10,000 UNITS/10 ML ONE (08:27)
[2018-09-23] MEDS ORDERED: NITROGLYCERIN SYRINGE 3 ML ONE (08:28)
[2018-09-23] MEDS ORDERED: XYLOCAINE 2% INFILTRATI ONE (08:28)
[2018-09-23] MEDS ORDERED: CALAN ONE (08:28)
[2018-09-23] MEDS ORDERED: VERSED ONE (08:29)
[2018-09-23] MEDS ORDERED: SUBLIMAZE ONE (08:29)
[2018-09-23] MEDS ORDERED: PLAVIX ONE (08:39)
[2018-09-23] MEDS ORDERED: PLAVIX PO SCH (09:00)
[2018-09-23] MEDS ORDERED: HEPARIN/NS 5000 UNIT/500ML(CATH LAB) 500 ML IR ONE (09:53)
--- NOTE | 2018-09-23 10:57 | Cardiac Catherization Report ---
CARDIAC CATHETERIZATION REFERRING PHYSICIAN: Lopez Mcgrath MD INDICATION FOR PROCEDURE: The patient is a pleasant 48-year-old female who presented with large anterior [place] 3 years ago, complicated by arrest. Underwent PCI, has done well, recently had more chest pain, had an abnormal treadmill yesterday. Given active chest pain, abnormal treadmill, she is referred for left heart catheterization. Risks, benefits, and potential alternatives explained at length prior to obtaining informed consent. PROCEDURE IN DETAIL: The patient was brought to catheterization lab in a postabsorptive state, prepped and draped in sterile fashion. Kermit's test in right hand was normal. A 2 mL of 2% lidocaine used to anesthetize the right wrist. A standard 6-Gambian hydrophilic sheath used to cannulate the right radial artery via modified Seldinger technique. All exchanges performed to exchange a J-tip guidewire. JL3.5 catheter used to engage the left main. No dampening or ventricularization. Cineangiography performed in all projections. JR4 catheter was used to cross the aortic valve under fluoroscopic guidance. Left ventriculography performed in 30 JADE and 30 GUINEAN projections via hand injections, catheter flushed. Manual pullback performed with continuous pressure monitoring. Catheter used to engage the right coronary. No dampening or ventricularization. Cineangiography performed in all projections. Next, given recurrent chest pain, unremarkable coronaries, a pigtail catheter was used for root aortogram with a power injector in the GUINEAN projection. Next, catheter removed from the body of wire, sheath removed. Manual pressure used to achieve hemostasis. DATA: Aortic pressure is 120/69, LV pressure is 120, LVEDP of 18 mmHg. Left ventriculography reveals normal systolic performance with estimated ejection fraction of 55-60%. No evidence of aortic stenosis. CORONARY ANATOMY: This is a right dominant system. Right coronary is a moderate sized vessel, courses AV groove. Scattered luminal irregularities, but no discrete stenosis identified. Left main without significant disease, bifurcates left anterior descending and left circumflex. Stent in the mid LAD is widely patent, no significant disease in the LAD or diagonal system. Left circumflex is widely patent, no significant disease in left circumflex or OM system. Root aortogram reveals normal contour, no evidence of dissection, penetrating aortic ulcer, or aortic insufficiency. I directly supervised the administration of moderate sedation with fentanyl and Versed from 10 a.m. to 10:30 a.m. No immediate complications were noted. CONCLUSIONS: 1. No angiographic evidence of significant epicardial coronary disease in this right dominant system. Patent mid LAD stent. 2. Normal left ventricular systolic performance, estimated ejection fraction of 55-60%. 3. No evidence of aortic stenosis. 4. Normal LVEDP. 5. Root aortography without evidence of dissection, penetrating aortic ulcer or aortic insufficiency. The patient is clinically stable, chest pain free. Aggressive primary and secondary prevention measures. Continue optimal medical therapy. Stable cardiac status. Follow up with me in the office. [facility]# [id number] SBM/NTS
--- NOTE | 2018-09-23 12:23 | Short Stay Summary ---
Short Stay Documentation Date of service: 09/23/18 - History H&P: obtained from office - Allergies and Medications Current Medications: Allergies No Known Allergies Allergy (Verified 11/29/17 15:01) Home Medications Medication Instructions Recorded Confirmed Last Taken Type Aspirin [Aspirin BABY CHEW TAB] 81 mg PO QDAY #30 tab.chew 09/24/15 09/23/18 09/22/18 Rx 1 tab AtorvaSTATin [Lipitor] 80 mg PO QHS #30 tablet 09/24/15 09/23/18 09/22/18 Rx 1 tab Nitroglycerin [Nitrostat] 0.4 mg SL .Q5MIN PRN #100 tablet 09/24/15 09/23/18 1 Day Ago Rx ~04/25/16 Pantoprazole [Protonix TAB] 40 mg PO QDAY #30 tablet 02/04/16 09/23/18 09/22/18 Rx Clopidogrel Bisulfate [Plavix] 75 mg PO DAILY 04/26/16 09/23/18 09/23/18 08:36 History 1 tab Zolpidem [Ambien] 5 mg PO QHS PRN 04/26/16 09/23/18 1 Day Ago History ~06/14/16 Ibuprofen [Motrin] 600 mg PO Q8H PRN #30 tablet 12/22/16 09/23/18 Unknown Rx Metoprolol 25 mg PO BID 05/28/17 09/23/18 09/22/18 History 1 tab Potassium Chloride [K-Dur] 10 meq PO QDAY 05/28/17 09/23/18 09/22/18 History 1 tab Acetaminophen/Codeine [Tylenol 1 tab PO Q6H PRN #10 tab 08/29/17 09/23/18 Unknown Rx /Codeine # 3 tab] Ciprofloxacin HCl [Cipro] 500 mg PO BID #14 tablet 08/29/17 09/23/18 Unknown Rx Phenazopyridine [Pyridium] 200 mg PO TID PRN #10 tab 08/29/17 09/23/18 Unknown Rx Acetaminophen/Codeine [Tylenol 1 tab PO Q6H PRN #20 tab 01/30/18 09/23/18 Unknown Rx /Codeine # 3 tab] Clobetasol Propionate/Emoll 60 gm TP DAILY 21 Days #1 cream..g. 01/30/18 09/23/18 Unknown Rx [Clobetasol Emollient 0.05% Crm] hydrOXYzine HCL [Atarax] 25 mg PO Q6HR PRN #28 tablet 01/30/18 09/23/18 Unknown Rx ALBUTEROL Inhaler (OR & NICU) 2 puff IH QID PRN #1 inhalation 04/29/18 08/25/18 Rx [ProAir HFA Inhaler] 1 puff Amoxicillin 500 mg PO QID #40 capsule 04/29/18 09/23/18 Unknown Rx guaiFENesin/CODEINE [Robitussin AC] 5 ml PO Q6H PRN #120 ml 04/29/18 09/23/18 Unknown Rx Furosemide [Lasix TAB] 40 mg PO QDAY 09/23/18 09/23/18 09/22/18 History 1 tab buPROPion SR [Wellbutrin Sr] 150 mg PO BID 09/23/18 09/23/18 09/22/18 History 1 tab Active Medications Clopidogrel Bisulfate (Plavix) 75 mg PO NOW EMILI Sodium Chloride (Nacl 0.9% 500 Ml) 500 mls @ 50 mls/hr IV DIRECT EMILI Stop: 09/23/18 17:59 Last Admin: 09/23/18 08:21 Dose: 50 mls/hr Documented by: - Brief post op/procedure progress note Date of procedure: 09/23/18 Pre-op diagnosis: cp; abnormal stress test Post-op diagnosis: same Procedure: C - see dictated cath report Anesthesia: local Estimated blood loss: none Condition: stable - Disposition Condition at discharge: Good Disposition: [id number] TO HOME OR SELFCARE - Discharge Diagnoses (1) CAD (coronary artery disease) Status: Chronic (2) Stented coronary artery Status: Chronic Short Stay Discharge Plan Activity: advance as tolerated Diet: low fat, low cholesterol, low salt Wound: open to air, keep clean and dry, per your surgeon's advice Follow up with: TASH GARCIA MD [Primary Care Provider] - 7 Days
[2018-09-23 15:45] VITALS: BP 110/69
== END 2018-09-23 13:30 | disposition home or self-care (01) ==
LOC: CATH 06:14
PROVIDERS: ATTEND Internal Medicine
DX: R07.89 Other chest pain (principal); R94.39 Abnormal result of other cardiovascular function study; I25.118 Atherosclerotic heart disease of native coronary artery with other forms of angina pectoris; I25.2 Old myocardial infarction; D64.9 Anemia, unspecified; K21.9 Gastro-esophageal reflux disease without esophagitis; E78.5 Hyperlipidemia, unspecified; Z90.49 Acquired absence of other specified parts of digestive tract; Z90.710 Acquired absence of both cervix and uterus; Z87.440 Personal history of urinary (tract) infections; Z81.1 Family history of alcohol abuse and dependence; Z79.899 Other long term (current) drug therapy; Z79.82 Long term (current) use of aspirin; Z87.891 Personal history of nicotine dependence; Z95.5 Presence of coronary angioplasty implant and graft; Z82.5 Family history of asthma and other chronic lower respiratory diseases; Z83.49 Family history of other endocrine, nutritional and metabolic diseases; Z80.3 Family history of malignant neoplasm of breast; Z80.1 Family history of malignant neoplasm of trachea, bronchus and lung; Z80.8 Family history of malignant neoplasm of other organs or systems; Z82.49 Family history of ischemic heart disease and other diseases of the circulatory system
CPT/HCPCS: 36415; 80048; 85025; 85610; 85730; 93010; 93458; 93567; 99156; 99157; C1894; J1644; J2250; J3010; J7040; 93005; Q9967

== ENCOUNTER 2019-02-18 15:06 | Emergency (ER) | payer SELFPAY ==
[2019-02-18 15:21] VITALS: BP 110/74
[2019-02-18 16:06] LABS: Bilirubin,Urine NEG (Negative); Blood,Urine SM (Negative); Color,Urine Straw (Yellow); Protein,Urine <15 mg/dL mg/dL (Negative); Urobilinogen,Urine < 2.0 mg/dL (<2.0)
[2019-02-18 17:31] LABS: Alanine Aminotransferase 88 units/L (7-56); Albumin 4.4 g/dL (3.9-5); BUN/Creatinine Ratio 20; Basophils % (Auto) 0.5 % (0.0-1.8); Blood Urea Nitrogen 12 mg/dL (7-17); Calcium 9.6 mg/dL (8.4-10.2); Eosinophils # (Auto) 0.4 K/mm3 (0.0-0.4); Eosinophils % (Auto) 4.8 % (0.0-4.3); Hematocrit 46.7 % (30.3-42.9); Hemoglobin 15.8 gm/dl (10.1-14.3); Hemolysis Index 14; Lymphocytes # (Auto) 1.8 K/mm3 (1.2-5.4); Lymphocytes % (Auto) 22.7 % (13.4-35.0); Mean Corpuscular HGB Conc 34 % (30-34); Mean Corpuscular Volume 89 fl (79-97); Monocytes # (Auto) 0.5 K/mm3 (0.0-0.8); Platelet Count 217 K/mm3 (140-440); Red Blood Count 5.23 M/mm3 (3.65-5.03); Red Cell Distribution Width 12.8 % (13.2-15.2)
[2019-02-18] MEDS ORDERED: ONDANSETRON 4 MG/2 ML INJ IM ONE (17:53)
[2019-02-18] MEDS ORDERED: fentaNYL 100 MCG/2 ML INJ IV ONE (17:53)
--- NOTE | 2019-02-18 18:03 | Emergency Department Report ---
HPI - General Chief Complaint: Back Pain/Injury Time Seen by Provider: 02/18/19 17:52 - HPI HPI: Room 37 The patient is a 48-year-old female presenting with chief complaint of back pain. Patient states her symptoms began 02/15/2019 with dysuria. Patient denies hematuria. Patient states her symptoms continued to worsen and she developed nausea without vomiting. This morning she developed bilateral flank pain with the right greater than left prompting her to come to the emergency department. Patient gives her pain a score of 8/10 Location: [See above] Duration: [See above] Quality: [See above] Severity: [See above] Timing: [See above] Context: [See above] Modifying factors: [See above] Associated signs and symptoms: [see above] ED Past Medical Hx - Past Medical History Hx Heart Attack/AMI: Yes (stent) Hx Seizures: Yes Additional medical history: [place] with stent placement 08/2015. Esophageal stricture - Surgical History Past Surgical History?: Yes Hx Cholecystectomy: Yes Additional Surgical History: hysterectomy - Family History Family history: no significant - Social History Smoking Status: Former Smoker (none 4 years) Substance Use Type: None (denies illicit drug use) - Medications Home Medications: Home Medications Medication Instructions Recorded Confirmed Last Taken Type Aspirin [Aspirin BABY CHEW TAB] 81 mg PO QDAY #30 tab.chew 09/24/15 09/23/18 09/22/18 Rx 1 tab AtorvaSTATin [Lipitor] 80 mg PO QHS #30 tablet 09/24/15 09/23/18 09/22/18 Rx 1 tab Nitroglycerin [Nitrostat] 0.4 mg SL .Q5MIN PRN #100 tablet 09/24/15 09/23/18 1 Day Ago Rx ~04/25/16 Pantoprazole [Protonix TAB] 40 mg PO QDAY #30 tablet 02/04/16 09/23/18 09/22/18 Rx Clopidogrel Bisulfate [Plavix] 75 mg PO DAILY 04/26/16 09/23/18 09/23/18 08:36 History 1 tab Zolpidem [Ambien] 5 mg PO QHS PRN 04/26/16 09/23/18 1 Day Ago History ~06/14/16 Ibuprofen [Motrin] 600 mg PO Q8H PRN #30 tablet 12/22/16 09/23/18 Unknown Rx Metoprolol 25 mg PO BID 05/28/17 09/23/18 09/22/18 History 1 tab Potassium Chloride [K-Dur] 10 meq PO QDAY 05/28/17 09/23/18 09/22/18 History 1 tab Acetaminophen/Codeine [Tylenol 1 tab PO Q6H PRN #10 tab 08/29/17 09/23/18 Unknown Rx /Codeine # 3 tab] Ciprofloxacin HCl [Cipro] 500 mg PO BID #14 tablet 08/29/17 09/23/18 Unknown Rx Phenazopyridine [Pyridium] 200 mg PO TID PRN #10 tab 08/29/17 09/23/18 Unknown Rx Acetaminophen/Codeine [Tylenol 1 tab PO Q6H PRN #20 tab 01/30/18 09/23/18 Unknown Rx /Codeine # 3 tab] Clobetasol Propionate/Emoll 60 gm TP DAILY 21 Days #1 cream..g. 01/30/18 09/23/18 Unknown Rx [Clobetasol Emollient 0.05% Crm] hydrOXYzine HCL [Atarax] 25 mg PO Q6HR PRN #28 tablet 01/30/18 09/23/18 Unknown Rx ALBUTEROL Inhaler (OR & NICU) 2 puff IH QID PRN #1 inhalation 04/29/18 08/25/18 Rx [ProAir HFA Inhaler] 1 puff Amoxicillin 500 mg PO QID #40 capsule 04/29/18 09/23/18 Unknown Rx guaiFENesin/CODEINE [Robitussin AC] 5 ml PO Q6H PRN #120 ml 04/29/18 09/23/18 Unknown Rx Furosemide [Lasix TAB] 40 mg PO QDAY 09/23/18 09/23/18 09/22/18 History 1 tab buPROPion SR [Wellbutrin Sr] 150 mg PO BID 09/23/18 09/23/18 09/22/18 History 1 tab Ciprofloxacin HCl [Ciprofloxacin 500 mg PO Q12HR #14 tab 02/18/19 Unknown Rx TAB] HYDROcodone/APAP 5-325 [[place] 1 - 2 each PO Q6HR PRN #10 tablet 02/18/19 Unknown Rx 5/325] Ibuprofen [Motrin 800 MG tab] 800 mg PO Q8HR PRN #20 tablet 02/18/19 Unknown Rx ED Review of Systems ROS: Stated complaint: KIDNEY INFECTION SYM Other details as noted in HPI Constitutional: no symptoms reported Eyes: denies: eye pain ENT: denies: throat pain Respiratory: no symptoms reported Cardiovascular: denies: chest pain Endocrine: no symptoms reported Gastrointestinal: nausea. denies: abdominal pain, vomiting Genitourinary: dysuria. denies: discharge Musculoskeletal: back pain Neurological: denies: headache Physical Exam - Physical Exam Vital Signs: Vital Signs 02/18/19 15:16 Temperature 97.4 F L Pulse Rate 70 Respiratory 17 Rate Blood Pressure 110/74 O2 Sat by Pulse 98 Oximetry Physical Exam: GENERAL: The patient is well-developed well-nourished female lying on stretcher not appearing to be in acute distress HEENT: Normocephalic. Atraumatic. Extraocular motions are intact. Patient has moist mucous membranes. NECK: Supple. Trachea midline CHEST/LUNGS: Clear to auscultation. There is no respiratory distress noted. HEART/CARDIOVASCULAR: Regular. There is no tachycardia. There is no gallop rub or murmur. ABDOMEN: Abdomen is soft, nontender. Patient has normal bowel sounds. There is no abdominal distention. SKIN: There is no rash. There is no edema. There is no diaphoresis. NEURO: The patient is awake, alert, and oriented. The patient is cooperative. The patient has normal speech MUSCULOSKELETAL: There is bilateral CVA tenderness. There is no evidence of acute injury. ED Course Vital Signs 02/18/19 15:16 Temperature 97.4 F L Pulse Rate 70 Respiratory 17 Rate Blood Pressure 110/74 O2 Sat by Pulse 98 Oximetry ED Medical Decision Making - Lab Data Result diagrams: 02/18/19 16:59 02/18/19 16:59 Laboratory Tests 02/18/19 02/18/19 02/18/19 15:30 16:59 16:59 WBC 8.1 RBC 5.23 H Hgb 15.8 H Hct 46.7 H MCV 89 MCH 30 MCHC 34 RDW 12.8 L Plt Count 217 Lymph % (Auto) 22.7 [place] % (Auto) 6.0 Eos % (Auto) 4.8 H Baso % (Auto) 0.5 Lymph # 1.8 [place] # 0.5 Eos # 0.4 Baso # 0.0 Seg Neutrophils % 66.0 Seg Neutrophils # 5.3 Sodium 136 L Potassium 4.1 Chloride 98.4 Carbon Dioxide 23 Anion Gap 19 BUN 12 Creatinine 0.6 L Estimated GFR > 60 BUN/Creatinine Ratio 20 Glucose 201 H Calcium 9.6 Total Bilirubin 0.70 AST 120 H ALT 88 H Alkaline Phosphatase 113 Total Protein 7.7 Albumin 4.4 Albumin/Globulin Ratio 1.3 Urine Color Straw Urine Turbidity Clear Urine pH 7.0 Ur Specific [place] 1.008 Urine Protein <15 mg/dl Urine Glucose (UA) Neg Urine Ketones Neg Urine Blood Sm Urine Nitrite Neg Urine Bilirubin Neg Urine Urobilinogen < 2.0 Ur Leukocyte Esterase Mod Urine WBC (Auto) 2.0 Urine RBC (Auto) 2.0 U Epithel Cells (Auto) 3.0 - Radiology Data Radiology results: report reviewed (CT abdomen and pelvis), image reviewed (CT abdomen and pelvis) [facility] [address] [place] [address] Cat Scan Report Signed Patient: ANGELINA MAK R#: [id number] : 1970 Acct:[id number] Age/Sex: 48 / F ADM Date: 02/18/19 Loc: ED Atten zena Dr: Ordering Physician: NASREEN MCCLOUD MD Date of Service: 02/18/19 Procedure(s): CT abdomen pelvis wo con Accession Number(s): [id number] cc: NASREEN MCCLOUD MD CT ABDOMEN AND PELVIS WITHOUT IV CONTRAST INDICATION: MAIN: bilateral flank pain right greater than left STARTED MARY NIGHT. COMPARISON: CT 08/29/2017. TECHNIQUE: All CT scans at this facility use dose modulation, automated exposure control, iterative reconstruction or weight based dosing, when appropriate, to reduce radiation dose to as low as reasonably achievable. FINDINGS: Lung Bases: No significant abnormality. Skeletal System: No acute abnormality. ABDOMEN: Liver: Diffuse hepatic steatosis. Gallbladder: Removed. Bile Ducts: No significant abnormality. Pancreas: No significant abnormality. Spleen: No significant abnormality. Adrenals: No significant abnormality. Right Kidney: No significant abnormality. Left Kidney: No significant abnormality. Upper GI tract: No significant abnormality. Lymph Nodes: No significant adenopa thy. Aorta: No significant abnormality. Additional Findings: No significant abnormality. PELVIS: Colon: No acute abnormality. Diverticulosis is noted. Urinary Bladder and Distal Ureters: No significant abnormality. Appendix: No significant abnormality. Lymph Nodes: No significant adenopathy. Additional Findings: None. IMPRESSION: 1. Within the limitations of non contrast technique, no acute process in the abdomen or pelvis. 2. Incidental findings, as above. Signer Name: Seymour Pérez MD Signed: 02/18/2019 7:01 PM Workstation Name: [id number] Transcribed By: OMI Dictated By: Seymour Pérez MD Electronically Authenticated By: Seymour Pérez MD Signed Date/Time: 02/18/191900 DD/ 58 TD/TT: - Differential Diagnosis UTI, pyelonephritis, renal colic Critical care attestation.: If time is entered above; I have spent that time in minutes in the direct care of this critically ill patient, excluding procedure time. ED Disposition Clinical Impression: Dysuria, Bilateral flank pain Disposition: TO HOME OR SELFCARE Is pt being admited?: No Does the pt Need Aspirin: No Condition: Stable Instructions: Dysuria (ED) Additional Instructions: Return to the emergency department should you develop worsening symptoms, inability to tolerate food or liquids, high fever or any other concerns Prescriptions: Ciprofloxacin HCl [Ciprofloxacin TAB] 500 mg PO Q12HR #14 tab Ibuprofen [Motrin 800 MG tab] 800 mg PO Q8HR PRN #20 tablet PRN Reason: Pain, Moderate (4-6) HYDROcodone/APAP 5-325 [[place] 5/325] 1 - 2 each PO Q6HR PRN #10 tablet PRN Reason: Pain Referrals: PRIMARY CAREMD [Primary Care Provider] - 3-5 Days [facility] - 3-5 Days Time of Disposition: 19:10
[2019-02-18] MEDS ORDERED: ONDANSETRON 4 MG/2 ML INJ IV ONE (18:42)
--- NOTE | 2019-02-18 19:06 | Cat Scan Report ---
CT ABDOMEN AND PELVIS WITHOUT IV CONTRAST INDICATION: MAIN: bilateral flank pain right greater than left STARTED MARY NIGHT. COMPARISON: CT 08/29/2017. TECHNIQUE: All CT scans at this facility use dose modulation, automated exposure control, iterative reconstructi on or weight based dosing, when appropriate, to reduce radiation dose to as low as reasonably achieva ble. FINDINGS: Lung Bases: No significant abnormality. Skeletal System: No acute abnormality. ABDOMEN: Liver: Diffuse hepatic steatosis. Gallbladder: Removed. Bile Ducts: No significant abnormality. Pancreas: No significant abnormality. Spleen: No significant abnormality. Adrenals: No significant abnormality. Right Kidney: No significant abnormality. Left Kidney: No significant abnormality. Upper GI tract: No significant abnormality. Lymph Nodes: No significant adenopathy. Aorta: No significant abnormality. Additional Findings: No significant abnormality. PELVIS: Colon: No acute abnormality. Diverticulosis is noted. Urinary Bladder and Distal Ureters: No significant abnormality. Appendix: No significant abnormality. Lymph Nodes: No significant adenopathy. Additional Findings: None. IMPRESSION: 1. Within the limitations of non contrast technique, no acute process in the abdomen or pelvis. 2. Incidental findings, as above. Signer Name: Seymour Pérez MD Signed: 02/18/2019 7:01 PM Workstation Name: [id number]
== END 2019-02-18 19:30 | disposition home or self-care (01) ==
LOC: ED 15:06
DX: R30.0 Dysuria (principal); R10.9 Unspecified abdominal pain; I25.2 Old myocardial infarction; Z95.5 Presence of coronary angioplasty implant and graft; Z90.49 Acquired absence of other specified parts of digestive tract; Z90.710 Acquired absence of both cervix and uterus; Z87.891 Personal history of nicotine dependence; Z79.899 Other long term (current) drug therapy
CPT/HCPCS: 36415; 74176; 80053; 81001; 85025; 96374; 96375; 99284; J2405; J3010

== ENCOUNTER 2020-01-19 12:17 | Emergency (ER) | payer SELFPAY ==
[2020-01-19 12:44] VITALS: BP 115/77
[2020-01-19] MEDS ORDERED: traMADol 50 MG TAB PO ONE (13:27)
--- NOTE | 2020-01-19 14:16 | Emergency Department Report ---
ED Lower Extremity HPI - General Chief Complaint: Extremity Injury, Lower Stated Complaint: LFT KNEE PAIN Time Seen by Provider: 01/19/20 13:10 Source: patient Mode of arrival: Wheelchair Limitations: No Limitations - History of Present Illness Initial Comments: Patient is a 49-year-old female presents emergency room with complaints of left knee pain that began just prior to arrival. Patient states that she was pushing her cousin who is wheelchair-bound a ramp and then believes that she twisted her knee and states that she has been having pain since then. She is ambulatory but states it is uncomfortable with ambulation. She denies any fall. She denies any numbness or weakness. She denies ever injuring in the past. She has a past medical history of CAD, [place], HTN. No allergies to medications. - Related Data Home Medications Medication Instructions Recorded Confirmed Last Taken Clopidogrel Bisulfate [Plavix] 75 mg PO DAILY 04/26/16 09/23/18 09/23/18 08:36 1 tab Zolpidem [Ambien] 5 mg PO QHS PRN 04/26/16 09/23/18 1 Day Ago ~06/14/16 Metoprolol 25 mg PO BID 05/28/17 09/23/18 09/22/18 1 tab Potassium Chloride [K-Dur] 10 meq PO QDAY 05/28/17 09/23/18 09/22/18 1 tab Furosemide [Lasix TAB] 40 mg PO QDAY 09/23/18 09/23/18 09/22/18 1 tab buPROPion SR [Wellbutrin Sr] 150 mg PO BID 09/23/18 09/23/18 09/22/18 1 tab Previous Rx's Medication Instructions Recorded Last Taken Type Aspirin [Aspirin BABY CHEW TAB] 81 mg PO QDAY #30 tab.chew 09/24/15 09/22/18 Rx 1 tab AtorvaSTATin [Lipitor] 80 mg PO QHS #30 tablet 09/24/15 09/22/18 Rx 1 tab Nitroglycerin [Nitrostat] 0.4 mg SL .Q5MIN PRN #100 tablet 09/24/15 1 Day Ago Rx ~04/25/16 Pantoprazole [Protonix TAB] 40 mg PO QDAY #30 tablet 02/04/16 09/22/18 Rx Ibuprofen [Motrin] 600 mg PO Q8H PRN #30 tablet 10/31/17 Unknown Rx Acetaminophen/Codeine [Tylenol 1 tab PO Q6H PRN #10 tab 08/29/17 Unknown Rx /Codeine # 3 tab] Ciprofloxacin HCl [Cipro] 500 mg PO BID #14 tablet 08/29/17 Unknown Rx Phenazopyridine [Pyridium] 200 mg PO TID PRN #10 tab 08/29/17 Unknown Rx Acetaminophen/Codeine [Tylenol 1 tab PO Q6H PRN #20 tab 01/30/18 Unknown Rx /Codeine # 3 tab] Clobetasol Propionate/Emoll 60 gm TP DAILY 21 Days #1 cream..g. 01/30/18 Unknown Rx [Clobetasol Emollient 0.05% Crm] hydrOXYzine HCL [Atarax] 25 mg PO Q6HR PRN #28 tablet 01/30/18 Unknown Rx Albuterol Mdi (or & Nicu Only) 2 puff IH QID PRN #1 inhalation 04/29/18 08/25/18 Rx [ProAir HFA Inhaler] 1 puff Amoxicillin 500 mg PO QID #40 capsule 04/29/18 Unknown Rx guaiFENesin/CODEINE [Robitussin AC] 5 ml PO Q6H PRN #120 ml 04/29/18 Unknown Rx Ciprofloxacin HCl [Ciprofloxacin 500 mg PO Q12HR #14 tab 02/18/19 Unknown Rx TAB] HYDROcodone/APAP 5-325 [[place] 1 - 2 each PO Q6HR PRN #10 tablet 02/18/19 Unknown Rx 5/325] Ibuprofen [Motrin 800 MG tab] 800 mg PO Q8HR PRN #20 tablet 02/18/19 Unknown Rx Naproxen [EC-Naproxen] 500 mg PO BID PRN #14 tablet. 01/19/20 Unknown Rx Allergies Allergy/AdvReac Type Severity Reaction Status Date / Time No Known Allergies Allergy Verified 01/19/20 12:39 ED Review of Systems ROS: Stated complaint: LFT KNEE PAIN Other details as noted in HPI Comment: All other systems reviewed and negative ED Past Medical Hx - Past Medical History Hx Hypertension: No Hx Heart Attack/AMI: Yes (stent) Hx Congestive Heart Failure: No Hx Diabetes: No Hx Seizures: Yes Hx Asthma: No Hx COPD: No Hx HIV: No Additional medical history: [place] with stent placement 08/2015. Esophageal stricture - Surgical History Hx Cholecystectomy: Yes Additional Surgical History: hysterectomy - Social History Smoking Status: Former Smoker (none 4 years) Substance Use Type: None (denies illicit drug use) - Medications Home Medications: Home Medications Medication Instructions Recorded Confirmed Last Taken Type Aspirin [Aspirin BABY CHEW TAB] 81 mg PO QDAY #30 tab.chew 09/24/15 09/23/18 09/22/18 Rx 1 tab AtorvaSTATin [Lipitor] 80 mg PO QHS #30 tablet 09/24/15 09/23/18 09/22/18 Rx 1 tab Nitroglycerin [Nitrostat] 0.4 mg SL .Q5MIN PRN #100 tablet 09/24/15 09/23/18 1 Day Ago Rx ~04/25/16 Pantoprazole [Protonix TAB] 40 mg PO QDAY #30 tablet 02/04/16 09/23/18 09/22/18 Rx Clopidogrel Bisulfate [Plavix] 75 mg PO DAILY 04/26/16 09/23/18 09/23/18 08:36 History 1 tab Zolpidem [Ambien] 5 mg PO QHS PRN 04/26/16 09/23/18 1 Day Ago History ~06/14/16 Ibuprofen [Motrin] 600 mg PO Q8H PRN #30 tablet 12/22/16 09/23/18 Unknown Rx Metoprolol 25 mg PO BID 05/28/17 09/23/18 09/22/18 History 1 tab Potassium Chloride [K-Dur] 10 meq PO QDAY 05/28/17 09/23/18 09/22/18 History 1 tab Acetaminophen/Codeine [Tylenol 1 tab PO Q6H PRN #10 tab 08/29/17 09/23/18 Unknown Rx /Codeine # 3 tab] Ciprofloxacin HCl [Cipro] 500 mg PO BID #14 tablet 08/29/17 09/23/18 Unknown Rx Phenazopyridine [Pyridium] 200 mg PO TID PRN #10 tab 08/29/17 09/23/18 Unknown Rx Acetaminophen/Codeine [Tylenol 1 tab PO Q6H PRN #20 tab 01/30/18 09/23/18 Unknown Rx /Codeine # 3 tab] Clobetasol Propionate/Emoll 60 gm TP DAILY 21 Days #1 cream..g. 01/30/1804/12 Unknown Rx [Clobetasol Emollient 0.05% Crm] hydrOXYzine HCL [Atarax] 25 mg PO Q6HR PRN #28 tablet 01/30/18 09/23/18 Unknown Rx Albuterol Mdi (or & Nicu Only) 2 puff IH QID PRN #1 inhalation 04/29/18 08/25/18 Rx [ProAir HFA Inhaler] 1 puff Amoxicillin 500 mg PO QID #40 capsule 04/29/18 09/23/18 Unknown Rx guaiFENesin/CODEINE [Robitussin AC] 5 ml PO Q6H PRN #120 ml 04/29/18 09/23/18 Unknown Rx Furosemide [Lasix TAB] 40 mg PO QDAY 09/23/18 09/23/18 09/22/18 History 1 tab buPROPion SR [Wellbutrin Sr] 150 mg PO BID 09/23/18 09/23/18 09/22/18 History 1 tab Ciprofloxacin HCl [Ciprofloxacin 500 mg PO Q12HR #14 tab 02/18/19 Unknown Rx TAB] HYDROcodone/APAP 5-325 [[place] 1 - 2 each PO Q6HR PRN #10 tablet 02/18/19 Unknown Rx 5/325] Ibuprofen [Motrin 800 MG tab] 800 mg PO Q8HR PRN #20 tablet 02/18/19 Unknown Rx Naproxen [EC-Naproxen] 500 mg PO BID PRN #14 tablet. 01/19/20 Unknown Rx ED Physical Exam - General Limitations: No Limitations General appearance: alert, in no apparent distress - Head Head exam: Present: atraumatic, normocephalic - Eye Eye exam: Present: normal appearance - ENT ENT exam: Present: mucous membranes moist - Respiratory Respiratory exam: Absent: respiratory distress, accessory muscle use - Extremities Exam Extremities exam: Present: other (generalized ttp of the left knee, no deformity, no ecchymosis, FROM of the RLE, no skin changes, no erythema or increased warmth, neurovascularly intact, 2+ distal pulses) - Neurological Exam Neurological exam: Present: alert, oriented X3 - Psychiatric Psychiatric exam: Present: normal affect, normal mood - Skin Skin exam: Present: warm, dry, intact ED Course Vital Signs 01/19/20 12:40 Temperature 98.1 F Pulse Rate 77 Respiratory 18 Rate Blood Pressure 115/77 [Right] O2 Sat by Pulse 96 Oximetry ED Lower Extremity MDM - Radiology Data Radiology results: report reviewed Ordering Physician: BLAIRE COVARRUBIAS Date of Service: 01/19/20 Procedure(s): XR knee 3V LT Accession Number(s): [id number] cc: BLAIRE COVARRUBIAS Fluoro Time In Minutes: . LEFT KNEE 3 VIEW(S) INDICATION / CLINICAL INFORMATION: left knee pain after twisting injury COMPARISON: None available. FINDINGS: BONES / JOINT(S): No acute fracture or subluxation. There is tricompartmental osteoarthritis. SOFT TISSUES: No significant joint capsular distention. Small dystrophic calcifications present within the anterior knee. ADDITIONAL FINDINGS: None. IMPRESSION: No acute osseous findings in the left knee. Signer Name: Arnel Braswell MD Signed: 01/19/2020 2:23 PM Workstation Name: [id number] Transcribed By: JS Dictated By: ARNEL ADAMS MD Electronically Authenticated By: ARNEL ADAMS MD Signed Date/Time: 01/19/201422 DD/ 21 TD/TT: - Medical Decision Making Patient is a 49-year-old female presents emergency room with complaints of left knee pain that began just prior to arrival. Patient states that she was pushing her cousin who is wheelchair-bound a ramp and then believes that she twisted her knee and states that she has been having pain since then. She is ambulatory but states it is uncomfortable with ambulation. She denies any fall. She denies any numbness or weakness. She denies ever injuring in the past. She has a past medical history of CAD, [place], HTN. No allergies to medications. Vitals are normal. On exam: generalized ttp of the left knee, no deformity, no ecchymosis, FROM of the RLE, no skin changes, no erythema or increased warmth, neurovascularly intact, 2+ distal pulses. XR L knee: No acute osseous findings in the left knee. Discussed all findings with patient and answered questions. Patient given pain medication while in the emergency department as she did not drive and symptoms improved. Patient placed in [place] wrap by marriage therapist and remained neurovascularly intact. Patient given prescription for naproxen. Advised patient Please take medication as prescribed as needed. May use ice for 15 minutes at a time, rest, elevation of the leg. Do not wear victor manuel wrap too tightly and do not wear at night while sleeping. Follow-up with your orthopedic doctor for reexamination. Return to emergency room for any new or worsening symptoms. - Differential Diagnosis Strain, sprain, fracture, dislocation, effusion, tendinitis Critical care attestation.: If time is entered above; I have spent that time in minutes in the direct care of this critically ill patient, excluding procedure time. ED Disposition Clinical Impression: Left knee sprain Qualifiers: Encounter type: initial encounter Involved ligament of knee: unspecified ligament Qualified Code(s): S83.92XA - Sprain of unspecified site of left knee, initial encounter Osteoarthritis Qualifiers: Osteoarthritis location: knee Osteoarthritis type: unspecified Laterality: left Qualified Code(s): M17.12 - Unilateral primary osteoarthritis, left knee Disposition: TO HOME OR SELFCARE Is pt being admited?: No Does the pt Need Aspirin: No Condition: Stable Instructions: Osteoarthritis, Knee Sprain, Adult, [id number] Additional Instructions: Please take medication as prescribed as needed. May use ice for 15 minutes at a time, rest, elevation of the leg. Do not wear victor manuel wrap too tightly and do not wear at night while sleeping. Follow-up with your orthopedic doctor for reexamination. Return to emergency room for any new or worsening symptoms. Prescriptions: Naproxen [EC-Naproxen] 500 mg PO BID PRN #14 tablet.dr BLANCAS Reason: pain Referrals: LORI BLUNT MD [Staff Physician] - 3-5 Days [facility] [Provider Group] - 3-5 Days Time of Disposition: 14:40 Print Language: AFGHAN
--- NOTE | 2020-01-19 14:28 | XRay Report ---
. LEFT KNEE 3 VIEW(S) INDICATION / CLINICAL INFORMATION: left knee pain after twisting injury COMPARISON: None available. FINDINGS: BONES / JOINT(S): No acute fracture or subluxation. There is tricompartmental osteoarthritis. SOFT TISSUES: No significant joint capsular distention. Small dystrophic calcifications present withi n the anterior knee. ADDITIONAL FINDINGS: None. IMPRESSION: No acute osseous findings in the left knee. Signer Name: Niranjan Braswell MD Signed: 01/19/2020 2:23 PM Workstation Name: [id number]
== END 2020-01-19 15:11 | disposition home or self-care (01) ==
LOC: ED 12:17
DX: S83.92XA Sprain of unspecified site of left knee, initial encounter (principal); M17.12 Unilateral primary osteoarthritis, left knee; I25.2 Old myocardial infarction; G40.909 Epilepsy, unspecified, not intractable, without status epilepticus; Z90.710 Acquired absence of both cervix and uterus; Z87.891 Personal history of nicotine dependence; Z79.82 Long term (current) use of aspirin; Z79.899 Other long term (current) drug therapy; W05.0XXA Fall from non-moving wheelchair, initial encounter; Y93.89 Activity, other specified; Y92.89 Other specified places as the place of occurrence of the external cause; Y99.8 Other external cause status
CPT/HCPCS: 99283

== ENCOUNTER 2021-01-06 08:55 | Emergency (ER) | payer SELFPAY ==
[2021-01-06] MEDS ORDERED: ACETAMINOPHEN 500 MG TAB PO ONE (09:45)
--- NOTE | 2021-01-06 09:48 | Emergency Department Report ---
ED General Adult HPI - General Stated complaint: BREASTAND HEAD PAIN Time Seen by Provider: 01/06/21 09:44 - History of Present Illness Initial comments: Patient presents with multiple issues including left arm pain and left chest pain, respiratory symptoms, head cold symptoms, and decreased urine output. Patient states that she had been sick with a head cold for at least a week. Over the last couple of days she noticed some subjective fevers. There was no history of sick contact. She has had no known coronavirus exposure. She has had no travel. Because of the fever and the worsening symptoms, she was concerned. Over the last 1 to 2 days she noticed some pain that was in the left axillary area and radiating down underneath the left breast. This was sharp and stabbing. It was worse with inspiration. It was worse with movement of her l eft arm. There is no history of trauma. This is not similar to the pain she had when she had a heart attack. She did not report trauma to this area. Patient had no pain or swelling in the legs. There is no vomiting or diarrhea. She states that she thought she might be dehydrated because she has not been urinating well lately. She states that she is very upset and nervous. - Related Data Home Medications Medication Instructions Recorded Confirmed Last Taken Clopidogrel Bisulfate [Plavix] 75 mg PO DAILY 04/26/16 09/23/18 09/23/18 08:36 1 tab Zolpidem [Ambien] 5 mg PO QHS PRN 04/26/16 09/23/18 1 Day Ago ~06/14/16 Metoprolol 25 mg PO BID 05/28/17 09/23/18 09/22/18 1 tab Potassium Chloride [K-Dur] 10 meq PO QDAY 05/28/17 09/23/18 09/22/18 1 tab Furosemide [Lasix TAB] 40 mg PO QDAY 09/23/18 09/23/18 09/22/18 1 tab buPROPion SR [Wellbutrin Sr] 150 mg PO BID 09/23/18 09/23/18 09/22/18 1 tab Previous Rx's Medication Instructions Recorded Last Taken Type Aspirin [Aspirin BABY CHEW TAB] 81 mg PO QDAY #30 tab.chew 09/24/15 09/22/18 Rx 1 tab AtorvaSTATin [Lipitor] 80 mg PO QHS #30 tablet 09/24/15 09/22/18 Rx 1 tab Nitroglycerin [Nitrostat] 0.4 mg SL .Q5MIN PRN #100 tablet 09/24/15 1 Day Ago Rx ~04/25/16 Pantoprazole [Protonix TAB] 40 mg PO QDAY #30 tablet 02/04/16 09/22/18 Rx Acetaminophen/Codeine [Tylenol 1 tab PO Q6H PRN #10 tab 08/29/17 Unknown Rx /Codeine # 3 tab] Phenazopyridine [Pyridium] 200 mg PO TID PRN #10 tab 08/29/17 Unknown Rx Acetaminophen/Codeine [Tylenol 1 tab PO Q6H PRN #20 tab 01/30/18 Unknown Rx /Codeine # 3 tab] Clobetasol Propionate/Emoll 60 gm TP DAILY 21 Days #1 cream..g. 01/30/18 Unknown Rx [Clobetasol Emollient 0.05% Crm] hydrOXYzine HCL [Atarax] 25 mg PO Q6HR PRN #28 tablet 01/30/18 Unknown Rx Albuterol Mdi (or & Nicu Only) 2 puff IH QID PRN #1 inhalation 01/06/21 Unknown Rx [ProAir HFA Inhaler] Benzonatate [Tessalon Perles] 100 mg PO Q8HR #20 capsule 01/06/21 Unknown Rx guaiFENesin/DEXTROMETHORPHAN 1 tab PO BID #20 tab 01/06/21 Unknown Rx [Mucinex DM ER 600-30 mg TAB] Allergies Allergy/AdvReac Type Severity Reaction Status Date / Time No Known Allergies Allergy Verified 01/19/20 12:39 ED Review of Systems ROS: Stated complaint: BREASTAND HEAD PAIN Other details as noted in HPI Comment: All other systems reviewed and negative Constitutional: see HPI Eyes: denies: eye pain ENT: denies: throat pain Respiratory: see HPI Cardiovascular: as per HPI, chest pain Endocrine: denies: unexplained weight loss Gastrointestinal: denies: abdominal pain Genitourinary: denies: dysuria Musculoskeletal: denies: back pain Skin: denies: rash Neurological: denies: headache Hematological/Lymphatic: denies: easy bruising ED Past Medical Hx - Past Medical History Hx Hypertension: No Hx Heart Attack/AMI: Yes (stent) Hx Congestive Heart Failure: No Hx Diabetes: No Hx Seizures: Yes Hx Asthma: No Hx COPD: No Hx HIV: No Additional medical history: [place] with stent placement 08/2015. Esophageal stricture. Opioid addiction in remission x1 year - Surgical History Hx Cholecystectomy: Yes Additional Surgical History: hysterectomy - Family History Family history: CAD/MN, hypertension - Social History Smoking Status: Former Smoker (none 4 years) Substance Use Type: None (denies illicit drug use) - Medications Home Medications: Home Medications Medication Instructions Recorded Confirmed Last Taken Type Aspirin [Aspirin BABY CHEW TAB] 81 mg PO QDAY #30 tab.chew 09/24/15 09/23/18 09/22/18 Rx 1 tab AtorvaSTATin [Lipitor] 80 mg PO QHS #30 tablet 09/24/15 09/23/18 09/22/18 Rx 1 tab Nitroglycerin [Nitrostat] 0.4 mg SL .Q5MIN PRN #100 tablet 09/24/15 09/23/18 1 Day Ago Rx ~04/25/16 Pantoprazole [Protonix TAB] 40 mg PO QDAY #30 tablet 02/04/16 09/23/18 09/22/18 Rx Clopidogrel Bisulfate [Plavix] 75 mg PO DAILY 04/26/16 09/23/18 09/23/18 08:36 History 1 tab Zolpidem [Ambien] 5 mg PO QHS PRN 04/26/16 09/23/18 1 Day Ago History ~06/14/16 Metoprolol 25 mg PO BID 05/28/17 09/23/18 09/22/18 History 1 tab Potassium Chloride [K-Dur] 10 meq PO QDAY 05/28/17 09/23/18 09/22/18 History 1 tab Acetaminophen/Codeine [Tylenol 1 tab PO Q6H PRN #10 tab 08/29/17 09/23/18 Unknown Rx /Codeine # 3 tab] Phenazopyridine [Pyridium] 200 mg PO TID PRN #10 tab 08/29/17 09/23/18 Unknown Rx Acetaminophen/Codeine [Tylenol 1 tab PO Q6H PRN #20 tab 01/30/18 09/23/18 Unknown Rx /Codeine # 3 tab] Clobetasol Propionate/Emoll 60 gm TP DAILY 21 Days #1 cream..g. 01/30/18 09/23/18 Unknown Rx [Clobetasol Emollient 0.05% Crm] hydrOXYzine HCL [Atarax] 25 mg PO Q6HR PRN #28 tablet 01/30/18 09/23/18 Unknown Rx Furosemide [Lasix TAB] 40 mg PO QDAY 09/23/18 09/23/18 09/22/18 History 1 tab buPROPion SR [Wellbutrin Sr] 150 mg PO BID 09/23/18 09/23/18 09/22/18 History 1 tab Albuterol Mdi (or & Nicu Only) 2 puff IH QID PRN #1 inhalation 01/06/21 Unknown Rx [ProAir HFA Inhaler] Benzonatate [Tessalon Perles] 100 mg PO Q8HR #20 capsule 01/06/21 Unknown Rx guaiFENesin/DEXTROMETHORPHAN 1 tab PO BID #20 tab 01/06/21 Unknown Rx [Mucinex DM ER 600-30 mg TAB] ED Physical Exam - General Limitations: No Limitations, Other (Pulse ox noted and normal) General appearance: alert, in no apparent distress, obese (Mild) - Head Head exam: Present: atraumatic, normocephalic, normal inspection - Eye Eye exam: Present: normal appearance, EOMI. Absent: scleral icterus - ENT ENT exam: Present: normal exam, normal external ear exam - Neck Neck exam: Present: normal inspection. Absent: meningismus - Respiratory Respiratory exam: Present: normal lung sounds bilaterally. Absent: respiratory distress - Cardiovascular Cardiovascular Exam: Present: normal rhythm, tachycardia - GI/Abdominal GI/Abdominal exam: Present: soft. Absent: tenderness - Extremities Exam Extremities exam: Present: normal capillary refill. Absent: pedal edema - Back Exam Back exam: Absent: CVA tenderness (R), CVA tenderness (L) - Neurological Exam Neurological exam: Present: alert, oriented X3, CN II-XII intact, normal gait - Psychiatric Psychiatric exam: Present: anxious, other (Tearful) - Skin Skin exam: Present: warm, dry ED Course Vital Signs 01/06/21 01/06/21 09:46 10:16 Temperature 100 F H Pulse Rate 123 H Respiratory 16 16 Rate Blood Pressure 122/79 [Left] O2 Sat by Pulse 95 Oximetry - Reevaluation(s) Reevaluation #1: 01/06/21 09:45 Chest x-ray and labs were ordered. Flu swab was ordered. Old records reviewed. Reevaluation #2: 01/06/21 13:38 X-ray was noted. Patient was discharged. ED Medical Decision Making - Lab Data Result diagrams: 01/06/21 09:59 01/06/21 09:59 - EKG Data -: EKG Interpreted by Me - EKG Data 01/06/21 13:40 EKG shows normal sinus rhythm with normal intervals. Patient has no ST elevation to suggest infarct. There is no ST depression suggestive of ischemia. - Radiology Data Radiology results: report reviewed - Medical Decision Making Patient presented with respiratory symptoms. There was no evidence of acute pneumonia. Patient does not have a pneumothorax. She does not have radiographic findings suggestive of coronavirus. Patient does not have influenza. She has pain in the left axillary area and left chest which she states is dissimilar to her prior history of cardiac disease. I do not believe this represents ACS. There is no EKG change. Patient was treated symp tomatically for her respiratory symptoms and discharged. She does not have symptoms that I believe are related to myocarditis. She has no EKG change. This does not appear to be consistent with CAD or ACS. She does not have a pulse deficit or wide mediastinum suggestive of aortic dissection. Pain is not specifically pleuritic. She is not tachycardic. She is not hypoxic. There is no unilateral leg edema. I clinically do not believe is represents pulmonary embolism. Critical Care Time: No Critical care attestation.: If time is entered above; I have spent that time in minutes in the direct care of this critically ill patient, excluding procedure time. ED Disposition Clinical Impression: Acute URI, Pleuritic chest pain Disposition: HOME / SELF CARE / HOMELESS Is pt being admited?: No Condition: Stable Instructions: Nonspecific Chest Pain, Adult, Viral Respiratory Infection, [id number], Pleurodynia Additional Instructions: Push fluids. Return for problems. Follow-up with your regular doctor for recheck and further management. Use Tylenol for fever. Prescriptions: guaiFENesin/DEXTROMETHORPHAN [Mucinex DM ER 600-30 mg TAB] 1 tab PO BID #20 tab Albuterol Mdi (or & Nicu Only) [ProAir HFA Inhaler] 2 puff IH QID PRN #1 inhalation PRN Reason: Shortness Of Breath Benzonatate [Tessalon Perles] 100 mg PO Q8HR #20 capsule
[2021-01-06 10:28] LABS: Basophils % (Auto) 0.5 % (0.0-1.8); Eosinophils % (Auto) 0.5 % (0.0-4.3); Hematocrit 41.9 % (30.3-42.9); Hemoglobin 14.3 gm/dl (10.1-14.3); Lymphocytes # (Auto) 1.4 K/mm3 (1.2-5.4); Lymphocytes % (Auto) 20.1 % (13.4-35.0); Mean Corpuscular HGB Conc 34 % (30-34); Mean Corpuscular Volume 87 fl (79-97); Monocytes # (Auto) 0.7 K/mm3 (0.0-0.8); Monocytes % (Auto) 9.3 % (0.0-7.3); Red Blood Count 4.83 M/mm3 (3.65-5.03); Red Cell Distribution Width 12.6 % (13.2-15.2)
[2021-01-06 10:55] LABS: Blood Urea Nitrogen 10 mg/dL (7-17); Calcium 9.1 mg/dL (8.4-10.2); Hemolysis Index 38
[2021-01-06 10:57] LABS: BUN/Creatinine Ratio 17
--- NOTE | 2021-01-06 11:31 | Electrocardiograph Report ---
[facility] Test Date: 2021-01-06 Test Time: 09:57:40 Pat Name: ANGELINA MAK Department: Room: Gender: F Parking Station Attendant: MICHEL : 1970 Requested By: SAV PARKER Order Number: [id number] Reading MD: Lopez Mcgrath Measurements Intervals Gerber Rate: 94 P: 74 TN: 150 QRS: 57 QRSD: 84 T: 51 QT: 333 QTc: 416 Interpretive Statements Sinus rhythm Low voltage, precordial leads No previous ECG available for comparison Electronically Signed On 01-06-2021 11:31:12 EST by Lopez Mcgrath
[2021-01-06 11:33] LABS: Platelet Count 153 K/mm3 (140-440)
--- NOTE | 2021-01-06 13:24 | XRay Report ---
CHEST 2 VIEWS INDICATION / CLINICAL INFORMATION: Cough, left chest pain. COMPARISON: 2 views of the chest from 04/29/2018 FINDINGS: SUPPORT DEVICES: None. HEART / MEDIASTINUM: No significant abnormality. LUNGS / PLEURA: No significant pulmonary abnormality. No significant pleural effusion. No pneumothora x. ADDITIONAL FINDINGS: No significant additional findings. IMPRESSION: 1. No acute abnormality of the chest. Signer Name: Marcin Pacheco MD Signed: 01/06/2021 1:20 PM Workstation Name: [id number]
[2021-01-06 13:59] VITALS: BP 120/80
== END 2021-01-06 14:00 | disposition home or self-care (01) ==
LOC: ED 08:55
DX: J02.9 Acute pharyngitis, unspecified (principal); R07.81 Pleurodynia; M79.602 Pain in left arm; R30.0 Dysuria; Z90.710 Acquired absence of both cervix and uterus; Z90.49 Acquired absence of other specified parts of digestive tract; Z87.891 Personal history of nicotine dependence; Z79.82 Long term (current) use of aspirin
CPT/HCPCS: 36415; 71046; 80048; 85025; 87400; 93005; 99284

== ENCOUNTER 2021-11-19 09:49 | Outpatient (CLI) | payer OTHER | END 2021-11-19 09:50 | disposition home or self-care (01) | LOC: PF 09:49 | PROVIDERS: ATTEND Internal Medicine | DX: J44.9 Chronic obstructive pulmonary disease, unspecified (principal); I51.9 Heart disease, unspecified | CPT/HCPCS: 94010 ==